=== PATIENT | female | born 1985 | race Caucasian/White ===

== ENCOUNTER 2017-09-03 22:03 | Emergency (ER) | payer SELFPAY ==
[~2017-09-03] VITALS: Ht 172.7 cm; Wt 139.3 kg
[~2017-09-03 22:03] MED LIST: BENZ100C15 PO; BUPR150T6 PO; INDO25CA PO; INDO25OR PO; LABE100T3 PO; MELO7.5T29 PO; OMEP20TA8 PO; ONDA4TAB10 PO; PARO20TA99 PO; QUET200T6 PO
[2017-09-03 22:34] LABS: BASO # 0.1 x10^3/uL (0.0-0.2); BASO % 1 % (0-3); EOS % 1 % (0-3); HEMATOCRIT 46.9 % (36.0-47.0); HEMOGLOBIN 15.8 g/dL (12.0-15.5); LYMPH # 1.9 x10^3/uL (1.0-4.8); LYMPH % 25 % (24-48); MEAN CORPUSCULAR HEMOGLOBIN 30 pg (25-35); MEAN CORPUSCULAR HGB CONC 34 g/dL (31-37); MEAN CORPUSCULAR VOLUME 89 fL (79-100); MONO % 8 % (0-9); NEUT % 66 % (31-73); PLATELET COUNT 240 x10^3/uL (140-400); RED BLOOD COUNT 5.25 x10^6/uL (3.50-5.40); WHITE BLOOD COUNT 7.7 x10^3/uL (4.0-11.0)
[2017-09-03 22:49] LABS: CALCIUM 9.4 mg/dL (8.5-10.1); CREATININE 0.7 mg/dL (0.6-1.0); GFR 97.6; POTASSIUM 3.7 mmol/L (3.5-5.1)
[2017-09-03 22:55] LABS: ALBUMIN 4.3 g/dL (3.4-5.0); DIRECT BILIRUBIN 0.1 mg/dL (0.0-0.2); TOTAL BILIRUBIN 0.4 mg/dL (0.2-1.0); TOTAL PROTEIN 7.7 g/dL (6.4-8.2)
[2017-09-03] MEDS ORDERED: ASPIRIN CHEWABLE 81 MG TABLET. PO ONE (23:30)
--- NOTE | 2017-09-03 23:35 | PHYS DOC ---
Past Medical History Past Medical History: Anxiety, Asthma, Diabetes-Type II, Fibromyalgia, Hypertension, Migraines, Seizure, Schizophrenia, Other Additional Past Medical Histor: ADD, BPD Past Surgical History: Other Additional Past Surgical Histo: wisdom teeth, cryo, heart cath- negative,exp lap, uterine lap Alcohol Use: None Drug Use: None Adult General Chief Complaint Chief Complaint: CHEST PAIN HPI HPI 32-year-old female presenting to the emergency department today with chest pain started around 1600. She describes the pain as a sharp shooting pain with nausea without vomiting. She denies diaphoresis. She denies unilateral leg swelling hemoptysis or personal history of blood clotting disorder. She has a history of high blood pressure and diabetes. Review of systems is negative for abdominal pain shortness of breath fevers chills. Positive for a cough over the past 2 weeks. All other review of systems is negative unless otherwise noted in history of present illness. ED course: 32-year-old female presenting with chest pain. Triage vital signs show the patient to be afebrile with a normal pulse. Saturating well on room air. Mild hypertension present. EKG obtained and reviewed by myself shows sinus rhythm with a regular rate. ST segments are congruent. Not suggestive of ACS. Chest x-ray obtained and reviewed by myself shows no obvious pneumothorax or infiltrate. No obvious acute pathology. Blood work obtained which showed a negative d-dimer. Wells 0. Negative troponin 2. Repeat EKG shows no acute changes. Patient subsequent discharged home. The patient was then discharged home in stable condition to follow up with their primary care physician over the next 2-3 days. They were to return if their symptoms worsened or if they were concerned for any reason. [id number] discharge instructions and return precautions were given. Patient's questions were answered to their satisfaction. Patient is comfortable plan. Review of Systems Review of Systems SEE ABOVE. Current Medications Current Medications Current Medications Medications (Trade) Dose Ordered Sig/Ric Start Time Stop Time Status Last Admin Dose Admin Aspirin (Children'S Aspirin) 324 mg 1X ONCE 09/03/17 23:30 09/03/17 23:31 DC 09/03/17 23:32 324 MG Allergies Allergies Allergies Coded Allergies Type Severity Reaction Last Updated Verified Hydroxychloroquine Allergy Severe "asthma" 02/24/14 Yes aripiprazole Allergy Severe "ATTEMPTS SUICIDE" 02/24/14 Yes coconut oil Allergy Severe swelling 02/24/14 Yes divalproex sodium Allergy Severe ATTEMPTS SUICIDE 02/24/14 Yes Penicillins Allergy Intermediate 04/21/14 Yes codeine Allergy Intermediate 04/21/14 Yes hydroxyzine Allergy Intermediate 04/21/14 Yes ibuprofen Allergy Intermediate 04/21/14 Yes red dye Allergy Intermediate 04/21/14 Yes tramadol Allergy Intermediate 04/21/14 Yes Prazosin Adverse Reaction Intermediate 02/24/14 Yes Physical Exam Physical Exam Constitutional: Well developed, well nourished, no acute distress, non-toxic appearance. HENT: Normocephalic, atraumatic, bilateral external ears normal, oropharynx moist, no oral exudates, nose normal. [] Eyes: PERRLA, EOMI, conjunctiva normal, no discharge. [] Neck: Normal range of motion, no tenderness, supple, no stridor. Cardiovascular:Heart rate regular rhythm, no murmur Lungs & Thorax: Bilateral breath sounds clear to auscultation [] Abdomen: Bowel sounds normal, soft, no tenderness, no masses, no pulsatile masses. [] Skin: Warm, dry, no erythema, no rash. Back: No tenderness, no CVA tenderness. [] Extremities: No tenderness, no cyanosis, no clubbing, ROM intact, no edema. Neurologic: Alert and oriented X 3, normal motor function, normal sensory function, no focal deficits noted. [] Psychologic: Affect normal, judgement normal, mood normal. [] Current Patient Data Vital Signs Vital Signs Date Time Temp Pulse Resp B/P (MAP) Pulse Ox O2 Delivery O2 Flow Rate FiO2 09/03/17 23:16 95 20 152/98 (116) 98 Room Air 09/03/17 22:16 98.1 98.1 Lab Values Laboratory Tests Test 09/03/17 22:25 09/04/17 01:11 White Blood Count 7.7 x10^3/uL (4.0-11.0) Red Blood Count 5.25 x10^6/uL (3.50-5.40) Hemoglobin 15.8 g/dL (12.0-15.5) H Hematocrit 46.9 % (36.0-47.0) Mean Corpuscular Volume 89 fL (79-100) Mean Corpuscular Hemoglobin 30 pg (25-35) Mean Corpuscular Hemoglobin Concent 34 g/dL (31-37) Red Cell Distribution Width 14.0 % (11.5-14.5) Platelet Count 240 x10^3/uL (140-400) Neutrophils (%) (Auto) 66 % (31-73) Lymphocytes (%) (Auto) 25 % (24-48) Monocytes (%) (Auto) 8 % (0-9) Eosinophils (%) (Auto) 1 % (0-3) Basophils (%) (Auto) 1 % (0-3) Neutrophils # (Auto) 5.1 x10^3uL (1.8-7.7) Lymphocytes # (Auto) 1.9 x10^3/uL (1.0-4.8) Monocytes # (Auto) 0.6 x10^3/uL (0.0-1.1) Eosinophils # (Auto) 0.0 x10^3/uL (0.0-0.7) Basophils # (Auto) 0.1 x10^3/uL (0.0-0.2) D-Dimer (Keli) 0.47 ug/mlFEU (0.00-0.50) Sodium Level 145 mmol/L (136-145) Potassium Level 3.7 mmol/L (3.5-5.1) Chloride Level 106 mmol/L (98-107) Carbon Dioxide Level 24 mmol/L (21-32) Anion Gap 15 (6-14) H Blood Urea Nitrogen 14 mg/dL (7-20) Creatinine 0.7 mg/dL (0.6-1.0) Estimated GFR (Cockcroft-Gault) 97.6 Glucose Level 93 mg/dL (70-99) Calcium Level 9.4 mg/dL (8.5-10.1) Total Bilirubin 0.4 mg/dL (0.2-1.0) Direct Bilirubin 0.1 mg/dL (0.0-0.2) Aspartate Amino Transferase (AST) 47 U/L (15-37) H Alanine Aminotransferase (ALT) 91 U/L (14-59) H Alkaline Phosphatase 106 U/L (46-116) Troponin I Quantitative 0.034 ng/mL (0.000-0.055) 0.029 ng/mL (0.000-0.055) Total Protein 7.7 g/dL (6.4-8.2) Albumin 4.3 g/dL (3.4-5.0) Lipase 102 U/L (73-393) Laboratory Tests 09/03/17 22:25 Laboratory Tests 09/03/17 22:25 EKG EKG [] Radiology/Procedures Radiology/Procedures [] Course & Med Decision Making Course & Med Decision Making Pertinent Labs and Imaging studies reviewed. (See chart for details) [] Dragon Disclaimer Dragon Disclaimer This electronic medical record was generated, in whole or in part, using a voice recognition dictation system. Departure Departure Impression: Primary Impression: Chest pain Disposition: HOME, SELF-CARE Condition: STABLE Referrals: SUMA BRADLEY MD (PCP) CHARLIE TERRAZAS MD for chest pain r/o evaluation Patient Instructions: Chest Pain (Nonspecific) Additional Instructions: Thank you for allowing us to participate in your care today. Followup with your primary care physician in 3 days if your symptoms do not improve. Call your Primary Doctor tomorrow and inform them of your visit today. If you do not have a primary care provider you can ask for a list of our primary care providers. Return to the emergency department you have any new or concerning findings. This should be evaluated by the primary care physician and any necessary consulting services for continued management within a few days after discharge. Return to emergency room if you have any new or concerning symptoms including but not limited to fever, chills, nausea, vomiting, intractable pain, any new rashes, chest pain, shortness of air, uncontrolled bleeding, difficulty breathing, and/or vision loss. Scripts Aspirin (ASPIR 81) 81 Mg Tablet.dr 1 TAB PO DAILY, #7 TAB 0 Refills Prov: MIKE RIVERA MD 09/04/17 MIKE RIVERA MD Sep 03, 2017 23:35
[2017-09-04] MEDS ORDERED: ASPI-482 PO (01:54)
[2017-09-04 02:23] VITALS: BP 140/93
--- NOTE | 2017-09-04 06:24 | EKG ---
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
--- NOTE | 2017-09-04 06:39 | EKG ---
[facility] [address] [place] [address] Test Date: 2017-09-04 Test Time: 01:01:28 Pat Name: SAUNDRA CAO Department: Room: Gender: F Derrick Hand: : 1985 Requested By: MIKE RIVERA Order Number: [id number] Reading MD: Marlin Ashraf Measurements Intervals [place] Rate: 72 P: 5 MO: 156 QRS: -18 QRSD: 108 T: 52 QT: 408 QTc: 448 Interpretive Statements SINUS RHYTHM NORMAL EKG Electronically Signed On 09-06-2017 18:59:36 CDT by Marlin Ashraf
--- NOTE | 2017-09-04 08:17 | RAD ---
Portable chest, 09/03/2017: History: Left-sided pain Comparison is made to a study from 04/21/2014. The heart size and pulmonary vascularity are normal. The lungs are clear. There is no evidence of pleural fluid. IMPRESSION: No acute cardiopulmonary abnormality is detected.
== END 2017-09-04 02:21 | disposition home or self-care (01) ==
LOC: ER 22:03
DX: R07.89 Other chest pain (principal); R11.0 Nausea; R05 Cough; F41.9 Anxiety disorder, unspecified; J45.909 Unspecified asthma, uncomplicated; E11.9 Type 2 diabetes mellitus without complications; M79.7 Fibromyalgia; I10 Essential (primary) hypertension; F20.9 Schizophrenia, unspecified; G43.909 Migraine, unspecified, not intractable, without status migrainosus; F98.8 Other specified behavioral and emotional disorders with onset usually occurring in childhood and adolescence; Z88.0 Allergy status to penicillin; Z88.5 Allergy status to narcotic agent; Z88.8 Allergy status to other drugs, medicaments and biological substances; Z91.041 Radiographic dye allergy status
CPT/HCPCS: 36415; 71010; 80048; 80076; 83690; 84484; 85025; 85379; 93005; 99285-25

== ENCOUNTER 2018-02-09 10:40 | Emergency (ER) | payer OTHER ==
[2018-02-09] MEDS: IV NORMAL SALINE 1000ML BAG 1,000 ML IV (11:21)
[2018-02-09] MEDS: diphenhydrAMINE 50 MG/ML VIAL IVP (11:21)
[2018-02-09] MEDS: ONDANSETRON PF 4 MG/2 ML VIAL. IV (11:21)
[2018-02-09] MEDS: KETOROLAC 30 MG/ML INJ. IV ×2 (13:45)
== END 2018-02-09 15:19 | disposition home or self-care (01) ==
LOC: ER 10:40
DX: R51 Headache (principal); R42 Dizziness and giddiness; G43.909 Migraine, unspecified, not intractable, without status migrainosus; J45.909 Unspecified asthma, uncomplicated; I10 Essential (primary) hypertension; F20.9 Schizophrenia, unspecified; E11.9 Type 2 diabetes mellitus without complications; F41.9 Anxiety disorder, unspecified; Z88.0 Allergy status to penicillin; Z88.5 Allergy status to narcotic agent; Z88.6 Allergy status to analgesic agent; Z91.041 Radiographic dye allergy status
CPT/HCPCS: 70450; 96361; 96374; 96375; 99285-25; J1200; J1885; J2405; J7030

== ENCOUNTER 2018-03-04 07:52 | Observation (INO) | payer OTHER ==
[~2018-03-04 07:52] MED LIST changes: -BENZ100C15 PO; -BUPR150T6 PO; +CLINDAMYCIN 900MG PREMIX 50 ML IV; -INDO25CA PO; -INDO25OR PO; -LABE100T3 PO; +LIDOCAINE 1% PF 2 ML VIAL. ID; -MELO7.5T29 PO; -OMEP20TA8 PO; -ONDA4TAB10 PO; -PARO20TA99 PO; -QUET200T6 PO; +fentaNYL PF VIAL 100 MCG/2 ML VIAL IV
[2018-03-04] MEDS: IV RINGERS,LACTATED 1000ML 1,000 ML IV (08:51)
[2018-03-04] MEDS ORDERED: METHYLENE BLUE 1% 10 ML VIAL. (09:32)
[2018-03-04] MEDS ORDERED: ESTROGENS, CONJ VAGINAL CREAM 30GM TUBE. (09:32)
[2018-03-04] MEDS ORDERED: SURGICEL HEMOSTAT 4X8 EACH. (09:32)
[2018-03-04 09:35] LABS: ADD MAN DIFF? NO
[2018-03-04 09:39] LABS: BASO % 1 % (0-3); EOS # 0.1 x10^3/uL (0.0-0.7); EOS % 2 % (0-3); HEMATOCRIT 38.8 % (36.0-47.0); HEMOGLOBIN 13.1 g/dL (12.0-15.5); LYMPH # 1.2 x10^3/uL (1.0-4.8); LYMPH % 18 % (24-48); MEAN CORPUSCULAR HEMOGLOBIN 30 pg (25-35); MEAN CORPUSCULAR HGB CONC 34 g/dL (31-37); MEAN CORPUSCULAR VOLUME 88 fL (79-100); MONO # 0.4 x10^3/uL (0.0-1.1); MONO % 7 % (0-9); NEUT # 4.7 x10^3uL (1.8-7.7); NEUT % 73 % (31-73); PLATELET COUNT 241 x10^3/uL (140-400); RED CELL DISTRIBUTION WIDTH 14.8 % (11.5-14.5); WHITE BLOOD COUNT 6.5 x10^3/uL (4.0-11.0)
[2018-03-04 09:41] LABS: NEG OBC UR NEG; POS OBC UR POS; U PREG PATIENT NEGATIVE (NEG)
[2018-03-04] MEDS ORDERED: MIDAZOLAM HCL/PF 2 MG/2 ML VIAL. (10:19)
[2018-03-04] MEDS ORDERED: DESFLURANE > 120 MINUTES IH (10:19)
[2018-03-04] MEDS ORDERED: fentaNYL PF VIAL 100 MCG/2 ML VIAL ×4 (10:19→13:06)
[2018-03-04] MEDS ORDERED: GLYCOPYRROLATE 1 MG/5 ML VIAL. (10:20)
[2018-03-04] MEDS ORDERED: ONDANSETRON PF 4 MG/2 ML VIAL. (10:20)
[2018-03-04] MEDS ORDERED: ROCURONIUM 50 MG/5 ML VIAL. ×2 (10:20→11:23)
[2018-03-04] MEDS ORDERED: NEOSTIGMINE METHYLSULFATE 5 MG/5 ML SYRINGE. (10:20)
[2018-03-04] MEDS ORDERED: PROPOFOL 20 ML IV (10:20)
[2018-03-04] MEDS ORDERED: DEXAMETHASONE SOD PHOS 20 MG/5 ML VIAL. (10:20)
[2018-03-04] MEDS ORDERED: KETOROLAC 30 MG/ML INJ FOR OR. INJ (10:20)
[2018-03-04] MEDS: BUPIVACAINE-EPI 0.25%-1:200000 50 ML VIAL. (11:20)
[2018-03-04] MEDS: LIDOCAINE 1%/EPI 1:100,000 20 ML VIAL. (11:20)
[2018-03-04] MEDS ORDERED: ONDANSETRON PF 4 MG/2 ML VIAL. IV (12:45)
[2018-03-04] MEDS ORDERED: PROCHLORPERAZINE 10 MG/2 ML VIAL. IV (12:45)
[2018-03-04] MEDS ORDERED: DEXTROSE 50% 25 GM / 50ML DISP.SYRIN. IV (12:45)
[2018-03-04] MEDS ORDERED: CALCIUM CARBONATE 500 MG TAB.CHEW PO (12:45)
[2018-03-04] MEDS ORDERED: SIMETHICONE 80 MG TAB.CHEW PO (12:45)
[2018-03-04] MEDS ORDERED: ZOLPIDEM 5 MG TABLET. PO (12:45)
[2018-03-04] MEDS: PROCHLORPERAZINE 10 MG/2 ML VIAL. IV (12:58)
[2018-03-04 12:59] LABS: POC GLUCOSE 101 mg/dL (70-99)
[2018-03-04] MEDS: fentaNYL PF VIAL 100 MCG/2 ML VIAL IV ×4 (12:59→13:26)
[2018-03-04] MEDS: KETOROLAC 30 MG/ML INJ. IV ×2 (14:25→20:28)
[2018-03-04] MEDS: GABAPENTIN 300 MG CAPSULE. PO ×2 (16:17→22:44)
[2018-03-05] MEDS: KETOROLAC 30 MG/ML INJ. IV ×2 (03:11→09:20)
[2018-03-05 05:18] LABS: ADD MAN DIFF? NO
[2018-03-05 05:38] LABS: BASO % 0 % (0-3); EOS # 0.1 x10^3/uL (0.0-0.7); EOS % 1 % (0-3); HEMATOCRIT 38.8 % (36.0-47.0); HEMOGLOBIN 13.2 g/dL (12.0-15.5); LYMPH # 1.5 x10^3/uL (1.0-4.8); LYMPH % 14 % (24-48); MEAN CORPUSCULAR HEMOGLOBIN 30 pg (25-35); MEAN CORPUSCULAR HGB CONC 34 g/dL (31-37); MEAN CORPUSCULAR VOLUME 87 fL (79-100); MONO # 0.7 x10^3/uL (0.0-1.1); MONO % 7 % (0-9); NEUT # 8.4 x10^3uL (1.8-7.7); NEUT % 78 % (31-73); PLATELET COUNT 255 x10^3/uL (140-400); RED BLOOD COUNT 4.47 x10^6/uL (3.50-5.40); RED CELL DISTRIBUTION WIDTH 14.9 % (11.5-14.5); WHITE BLOOD COUNT 10.8 x10^3/uL (4.0-11.0)
[2018-03-05] MEDS: GABAPENTIN 300 MG CAPSULE. PO (06:23)
[2018-03-05 08:04] LABS: POC GLUCOSE 82 mg/dL (70-99)
[2018-03-05] MEDS: 0.9 % SODIUM CHLORIDE 10 ML DISP.SYRIN. IV (09:20)
== END 2018-03-05 11:00 | disposition home or self-care (01) ==
LOC: SURG 07:52 → 3 NORTH 12:42
DX: N70.11 Chronic salpingitis (principal); N94.6 Dysmenorrhea, unspecified; N85.2 Hypertrophy of uterus; N73.6 Female pelvic peritoneal adhesions (postinfective); N94.89 Other specified conditions associated with female genital organs and menstrual cycle
CPT/HCPCS: 36415; 81025; 82962; 85025; 86850; 86900; 86901; 88307; 96374; 96376; G0378; G0379; J0780; J1100; J1885; J1956; J2250; J2405; J2704; J2710; J3010; J3490; J7120; Q9968

== ENCOUNTER 2018-03-31 14:36 | Emergency (ER) | payer OTHER ==
[2018-03-31] MEDS: IV NORMAL SALINE 1000ML BAG 1,000 ML IV (15:29)
[2018-03-31] MEDS: diphenhydrAMINE 50 MG/ML VIAL IVP (15:31)
[2018-03-31] MEDS: PROCHLORPERAZINE 10 MG/2 ML VIAL. IV (15:32)
[2018-03-31] MEDS: KETOROLAC 30 MG/ML INJ. IV (15:33)
== END 2018-03-31 16:27 | disposition home or self-care (01) ==
LOC: ER 16:27
DX: G43.009 Migraine without aura, not intractable, without status migrainosus (principal); E11.9 Type 2 diabetes mellitus without complications; F20.9 Schizophrenia, unspecified; I10 Essential (primary) hypertension; J45.909 Unspecified asthma, uncomplicated; M79.7 Fibromyalgia; Z88.2 Allergy status to sulfonamides; Z88.6 Allergy status to analgesic agent; Z88.1 Allergy status to other antibiotic agents; Z91.030 Bee allergy status; Z91.041 Radiographic dye allergy status; Z91.011 Allergy to milk products; Z88.5 Allergy status to narcotic agent; Z88.8 Allergy status to other drugs, medicaments and biological substances; Z91.018 Allergy to other foods
CPT/HCPCS: 96361; 96374; 96375; 99285-25; J0780; J1200; J1885; J7030

== ENCOUNTER 2018-04-10 16:18 | Emergency (ER) | payer OTHER ==
[2018-04-10 17:11] LABS: BILIRUBIN,URINE NEGATIVE (NEG); CLARITY,URINE CLEAR; COLOR,URINE YELLOW; GLUCOSE,URINE NEGATIVE (NEG); NITRITE,URINE NEGATIVE (NEG); PROTEIN,URINE NEGATIVE (NEG-TRACE); UROBILINOGEN,URINE 0.2 mg/dL (0.2 mg/dL)
[2018-04-10 17:17] LABS: BACTERIA,URINE FEW /HPF (0-FEW); RBC,URINE 0 /HPF (0-2); SQUAMOUS EPITHELIAL CELL,UR MOD /LPF
[2018-04-10 17:23] LABS: BARBITURATES NEG (NEG); BENZODIAZEPINES NEG (NEG); CANNABINOIDS NEG (NEG); COCAINE NEG (NEG); METHADONE NEG (NEG); OPIATES NEG (NEG); PHENCYCLIDINE NEG (NEG)
[2018-04-10 17:27] LABS: AMPHETAMINE/METHAMPHETAMINE NEG (NEG); ETHANOL, URINE NEG (NEG)
[2018-04-10] MEDS ORDERED: IOHEXOL 300 MG/ML 100ML VIAL. IV (17:30)
[2018-04-10] MEDS: ONDANSETRON PF 4 MG/2 ML VIAL. IV (18:11)
[2018-04-10] MEDS: fentaNYL PF VIAL 100 MCG/2 ML VIAL IV (18:15)
[2018-04-10] MEDS: PANTOPRAZOLE IV PUSH 40 MG VIAL. IVP (18:18)
[2018-04-10 18:45] LABS: ADD MAN DIFF? NO
[2018-04-10 18:49] LABS: BASO % 1 % (0-3); EOS # 0.2 x10^3/uL (0.0-0.7); EOS % 2 % (0-3); HEMATOCRIT 37.6 % (36.0-47.0); HEMOGLOBIN 12.9 g/dL (12.0-15.5); LYMPH # 1.6 x10^3/uL (1.0-4.8); LYMPH % 21 % (24-48); MEAN CORPUSCULAR HEMOGLOBIN 31 pg (25-35); MEAN CORPUSCULAR HGB CONC 34 g/dL (31-37); MEAN CORPUSCULAR VOLUME 89 fL (79-100); MONO # 0.6 x10^3/uL (0.0-1.1); MONO % 8 % (0-9); NEUT # 5.2 x10^3uL (1.8-7.7); NEUT % 68 % (31-73); PLATELET COUNT 281 x10^3/uL (140-400); RED BLOOD COUNT 4.25 x10^6/uL (3.50-5.40); RED CELL DISTRIBUTION WIDTH 15.6 % (11.5-14.5); WHITE BLOOD COUNT 7.6 x10^3/uL (4.0-11.0)
[2018-04-10 18:57] LABS: ANION GAP 11 (6-14); BLOOD UREA NITROGEN 17 mg/dL (7-20); BUN/CREATININE RATIO 21 (6-20); CALCIUM 8.3 mg/dL (8.5-10.1); CARBON DIOXIDE 25 mmol/L (21-32); CHLORIDE 106 mmol/L (98-107); CREATININE 0.8 mg/dL (0.6-1.0); GFR 83.7; GLUCOSE 94 mg/dL (70-99); POTASSIUM 3.8 mmol/L (3.5-5.1); SODIUM 142 mmol/L (136-145)
[2018-04-10 18:59] LABS: ETHANOL < 10 mg/dL (0-10)
[2018-04-10 19:03] LABS: ALBUMIN 3.7 g/dL (3.4-5.0); ALBUMIN/GLOBULIN RATIO 1.1 (1.0-1.7); ALK PHOS 98 U/L (46-116); ALT (SGPT) 32 U/L (14-59); AST (SGOT) 15 U/L (15-37); LIPASE 129 U/L (73-393); TOTAL BILIRUBIN 0.3 mg/dL (0.2-1.0); TOTAL PROTEIN 7.1 g/dL (6.4-8.2)
[2018-04-10] MEDS: KETOROLAC 30 MG/ML INJ. IV (19:31)
== END 2018-04-10 20:07 | disposition home or self-care (01) ==
LOC: ER 20:07
DX: R10.31 Right lower quadrant pain (principal); R10.11 Right upper quadrant pain; G89.29 Other chronic pain; K21.9 Gastro-esophageal reflux disease without esophagitis; J45.909 Unspecified asthma, uncomplicated; M79.7 Fibromyalgia; G43.909 Migraine, unspecified, not intractable, without status migrainosus; F20.9 Schizophrenia, unspecified; I10 Essential (primary) hypertension; E11.9 Type 2 diabetes mellitus without complications; Z90.710 Acquired absence of both cervix and uterus; Z90.49 Acquired absence of other specified parts of digestive tract; Z88.2 Allergy status to sulfonamides; Z88.1 Allergy status to other antibiotic agents; Z88.5 Allergy status to narcotic agent; Z88.8 Allergy status to other drugs, medicaments and biological substances; Z91.030 Bee allergy status; Z91.041 Radiographic dye allergy status; Z91.011 Allergy to milk products
CPT/HCPCS: 36415; 74176; 80053; 80307; 81001; 83690; 85025; 87086; 96374; 96375; 99285-25; C9113; G0480; J1885; J2405; J3010

== ENCOUNTER 2018-04-29 14:03 | Emergency (ER) | payer OTHER ==
[2018-04-29 14:33] LABS: BILIRUBIN,URINE NEGATIVE (NEG); CLARITY,URINE CLEAR; COLOR,URINE YELLOW; GLUCOSE,URINE NEGATIVE (NEG); NITRITE,URINE NEGATIVE (NEG); PROTEIN,URINE NEGATIVE (NEG-TRACE)
[2018-04-29 14:38] LABS: ADD MAN DIFF? NO
[2018-04-29 14:39] LABS: BACTERIA,URINE MOD /HPF (0-FEW); BASO # 0.1 x10^3/uL (0.0-0.2); BASO % 1 % (0-3); EOS # 0.1 x10^3/uL (0.0-0.7); EOS % 2 % (0-3); HEMATOCRIT 39.6 % (36.0-47.0); HEMOGLOBIN 13.6 g/dL (12.0-15.5); LYMPH # 1.8 x10^3/uL (1.0-4.8); LYMPH % 27 % (24-48); MEAN CORPUSCULAR HEMOGLOBIN 30 pg (25-35); MEAN CORPUSCULAR HGB CONC 34 g/dL (31-37); MEAN CORPUSCULAR VOLUME 88 fL (79-100); MONO # 0.5 x10^3/uL (0.0-1.1); MONO % 8 % (0-9); NEUT # 4.2 x10^3uL (1.8-7.7); NEUT % 63 % (31-73); PLATELET COUNT 224 x10^3/uL (140-400); RBC,URINE 0 /HPF (0-2); RED BLOOD COUNT 4.48 x10^6/uL (3.50-5.40); RED CELL DISTRIBUTION WIDTH 15.1 % (11.5-14.5); SQUAMOUS EPITHELIAL CELL,UR MOD /LPF; WHITE BLOOD COUNT 6.7 x10^3/uL (4.0-11.0)
[2018-04-29 14:54] LABS: ANION GAP 12 (6-14); BLOOD UREA NITROGEN 22 mg/dL (7-20); CALCIUM 8.4 mg/dL (8.5-10.1); CARBON DIOXIDE 24 mmol/L (21-32); CHLORIDE 107 mmol/L (98-107); GFR 64.7; GLUCOSE 91 mg/dL (70-99); POTASSIUM 3.5 mmol/L (3.5-5.1); SODIUM 143 mmol/L (136-145)
[2018-04-29 15:06] LABS: TROPONINI < 0.017 ng/mL (0.000-0.055)
[2018-04-29] MEDS: IV NORMAL SALINE 1000ML BAG 1,000 ML IV (15:09)
[2018-04-29] MEDS: HYDROcodone/APAP 5/325MG 1 TAB TABLET PO (15:58)
== END 2018-04-29 15:55 | disposition home or self-care (01) ==
LOC: ER 14:03
DX: R56.9 Unspecified convulsions (principal); R53.1 Weakness; M79.604 Pain in right leg; M79.605 Pain in left leg; I10 Essential (primary) hypertension; E11.9 Type 2 diabetes mellitus without complications; F20.9 Schizophrenia, unspecified; J45.909 Unspecified asthma, uncomplicated; G43.909 Migraine, unspecified, not intractable, without status migrainosus; M79.7 Fibromyalgia; G47.33 Obstructive sleep apnea (adult) (pediatric); Z90.710 Acquired absence of both cervix and uterus; Z88.2 Allergy status to sulfonamides; Z88.1 Allergy status to other antibiotic agents; Z91.030 Bee allergy status; Z91.041 Radiographic dye allergy status; Z91.038 Other insect allergy status; Z91.011 Allergy to milk products; Z88.5 Allergy status to narcotic agent; Z88.8 Allergy status to other drugs, medicaments and biological substances; Z91.018 Allergy to other foods; [UNRECOGNIZED DIAGNOSIS CODE]
CPT/HCPCS: 36415; 80048; 81001; 84484; 85025; 93005; 96360; 99285-25; J7030

== ENCOUNTER → 2018-05-19 | Outpatient (CLI) | payer MEDICARE ==
[2018-05-19] MEDS: GADOBUTROL 7.5 MMOL/7.5 ML VIAL IV (14:45)
== END | disposition home or self-care (01) ==
LOC: KCIC MRI 13:57
DX: G43.909 Migraine, unspecified, not intractable, without status migrainosus (principal); I10 Essential (primary) hypertension; E11.9 Type 2 diabetes mellitus without complications
CPT/HCPCS: 70553; A9585

== ENCOUNTER 2018-05-29 12:42 | Emergency (ER) | payer MEDICARE ==
[2018-05-29] MEDS: HYDROcodone/APAP 10/325 1 TAB TABLET PO (13:10)
== END 2018-05-29 14:00 | disposition home or self-care (01) ==
LOC: ER 14:00
DX: M25.561 Pain in right knee (principal); F41.9 Anxiety disorder, unspecified; J45.909 Unspecified asthma, uncomplicated; E11.9 Type 2 diabetes mellitus without complications; I10 Essential (primary) hypertension; G43.909 Migraine, unspecified, not intractable, without status migrainosus; Z90.710 Acquired absence of both cervix and uterus; Z88.1 Allergy status to other antibiotic agents; Z91.030 Bee allergy status; Z91.041 Radiographic dye allergy status; Z91.011 Allergy to milk products; Z88.2 Allergy status to sulfonamides; Z88.8 Allergy status to other drugs, medicaments and biological substances
CPT/HCPCS: 73562; 99284

== ENCOUNTER 2018-08-22 15:09 | Emergency (ER) | payer MEDICARE ==
[~2018-08-22] VITALS: Ht 165.1 cm; Wt 129.7 kg
[~2018-08-22 15:09] MED LIST changes: +ALBU2.5V14 NEB; +ALBU8.5H8 IH; +AMLO10TA6 PO; +ASPI-482 PO; +BENZ-8 PO; +BUPR150T6 PO; +BUSP5TAB PO; +CETI10TA16 PO; -CLINDAMYCIN 900MG PREMIX 50 ML IV; +CYCL5TAB PO; +DICL100G18 TP; +DOCU-109 PO; +EPIPEN 2-P0.3 MG/0.3 IJ; +ESCITALOPRAM OX20 MG PO; +FLUT16SP NS; +FLUT1DIS3 IH; +GABA600T2 PO; +GUAI600T47 PO; +HYDR-971 PO; +IBUP200T77 PO; +INDO25CA5 PO; +INDO25OR PO; +LABE100T5 PO; +LAMO200T3 PO; -LIDOCAINE 1% PF 2 ML VIAL. ID; +LURA80TA PO; +MECL25TA3 PO; +MELO7.5T29 PO; +METO25TA4 PO; +OMEP20TA8 PO; +ONDA4TAB10 PO; +ONDA4TAB10 SL; +OXYB5TAB7 PO; +OXYC-323 PO; +PARO20TA99 PO; +PROM25TA10 PO; +QUET200T4 PO; +QUET200T6 PO; +SUMA100T4 PO; +TRAZ150T49 PO; -fentaNYL PF VIAL 100 MCG/2 ML VIAL IV
--- NOTE | 2018-08-22 16:21 | PHYS DOC ---
Past Medical History Past Medical History: Anxiety, Asthma, Diabetes-Type II, Fibromyalgia, Hypertension, Migraines, Seizure, Schizophrenia, Other Additional Past Medical Histor: ADD, BPD, INTERSTITIAL CYSTITIS Past Surgical History: Hysterectomy, Other Additional Past Surgical Histo: wisdom teeth, cryo, heart cath- negative,exp lap, uterine lap Alcohol Use: Rarely Drug Use: None Adult General Chief Complaint Chief Complaint: FACE PROBLEM HPI HPI Patient is a 33 year old female who presents to the ER with complaints of left sided facial numbness from the level of her ear down to her shoulder since awakening this morning. She states that she also has pain in the left side of her neck with movement to the right . She denies any fever, facial drooping, weakness, injury, difficulty speaking, incoordination, or vision changes. 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 She denies any nausea, vomiting, or photosensitivity. She states that she has had torticollis before and that the pain is similar to those symptoms, however, she has never had tingling with her torticollis. Currently patient rates her discomfort as a 8-9 out of 10 on the pain scale. She reports taking a oxycodone 5/325 mg tablet at home with no relief of her symptoms. Review of Systems Review of Systems Constitutional: Denies fever or chills [] Eyes: Denies change in visual acuity, redness, or eye pain [] Respiratory: Denies cough or shortness of breath [] Cardiovascular: No additional information not addressed in HPI [] GI: Denies nausea, vomiting Integument: Denies rash or skin lesions [] Neurologic: Denies headache or focal weakness, reports numbness and pain in left side of face from the level of her ear down her neck to her shoulder. All other systems were reviewed and found to be within normal limits, except as documented in this note. Current Medications Current Medications Current Medications Medications (Trade) Dose Ordered Sig/Ric Start Time Stop Time Status Last Admin Dose Admin Iohexol (Omnipaque 300 Mg/ml) 70 ml 1X ONCE 08/22/18 17:30 08/22/18 17:41 DC 08/22/18 17:41 70 ML Ketorolac Tromethamine (Toradol 15mg Vial) 15 mg 1X ONCE 08/22/18 17:30 08/22/18 17:41 DC 08/22/18 18:02 15 MG Orphenadrine Citrate (Norflex) 60 mg 1X ONCE 08/22/18 17:30 08/22/18 17:41 DC 08/22/18 18:02 60 MG Sodium Chloride 1,000 ml @ 1,000 mls/hr 1X ONCE 08/22/18 17:15 08/22/18 18:14 DC 08/22/18 17:23 1,000 MLS/HR Allergies Allergies Allergies Coded Allergies Type Severity Reaction Last Updated Verified aripiprazole Allergy Severe "ATTEMPTS SUICIDE" 02/24/14 Yes bee venom protein (honey bee) Allergy Severe Anaphylaxis 02/26/18 Yes cephalexin Allergy Severe Anaphylaxis 02/26/18 Yes coconut oil Allergy Severe swelling 02/24/14 Yes divalproex sodium Allergy Severe ATTEMPTS SUICIDE 02/24/14 Yes hydroxychloroquine Allergy Severe "asthma" 02/24/14 Yes venlafaxine Allergy Severe 02/26/18 Yes venom-wasp Allergy Severe Anaphylaxis 02/26/18 Yes Sulfa (Sulfonamide Antibiotics) Allergy Intermediate 03/05/18 Yes codeine Allergy Intermediate 02/04/18 Yes hydroxyzine Allergy Intermediate 04/21/14 Yes red dye Allergy Intermediate 04/21/14 Yes lactose Adverse Reaction Intermediate 03/05/18 Yes prazosin Adverse Reaction Intermediate 02/24/14 Yes Physical Exam Physical Exam Constitutional: Well developed, well nourished, no acute distress, non-toxic appearance, obese. [] HENT: Normocephalic, atraumatic, bilateral external ears normal, oropharynx moist, no oral exudates, nose normal. [] Eyes: PERRLA, EOMI, conjunctiva normal, no discharge. [] Neck: supple, no stridor.; left sternocleidomastoid tenderness to palpation, limited ROM to the R due to increased pain [] Cardiovascular:Heart rate regular rhythm, no murmur [] Lungs & Thorax: Bilateral breath sounds clear to auscultation [] Skin: Warm, dry, no erythema, no rash. 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 [] Current Patient Data Vital Signs Vital Signs Date Time Temp Pulse Resp B/P (MAP) Pulse Ox O2 Delivery O2 Flow Rate FiO2 08/22/18 15:30 98.6 73 16 146/84 (104) 98 Room Air 98.6 Lab Values Laboratory Tests Test 08/22/18 16:39 POC Hemoglobin 13.9 g/dL (12-15) POC Hematocrit 41 % (36-40) H POC Sodium 139 mmol/L (135-145) POC Potassium 5.5 mmol/L (3.5-5.0) H POC Chloride 103 mmol/L (98-110) POC Total CO2 27 mmol/L (23-32) Anion Gap 15 mmol/L (6-14) H POC Blood Urea Nitrogen 24 mg/dL (8-26) POC Creatinine 0.8 mg/dL (0.5-1.4) Glucose Level 107 mg/dL (70-99) H POC Ionized Calcium (Vikki) 1.10 mmol/L (1.13-1.32) L Laboratory Tests 08/22/18 16:39 EKG EKG [] Radiology/Procedures Radiology/Procedures []PROCEDURE: CT HEAD WO/W CONTRAST CT scan of the head without and with contrast 08/22/2018 CLINICAL HISTORY: Chronic migraines. History of seizures. TECHNIQUE: Study was, 5 mm axial sections were obtained through the head without and with use of intravenous contrast. 70 cc of Omnipaque 300 were administered intravenously during this examination. One or more of the following individualized dose reduction techniques were utilized for this study: 1. Automated exposure control. 2. Adjustment of the mA and/or kV according to patient size. 3. Use of iterative reconstruction technique. FINDINGS: Comparison is made to the patient's MRI of the brain dated 05/19/2018. The ventricles are within normal limits in size and configuration. Small cysts are seen within the superior left frontal lobe, unchanged. No acute parenchymal abnormality is seen. No extra-axial fluid collection is noted. No area of abnormal contrast enhancement is seen. No skull fracture is noted. IMPRESSION: No acute intracranial abnormality is seen. Course & Med Decision Making Course & Med Decision Making Pertinent Labs and Imaging studies reviewed. (See chart for details) Dx: Xt head was negative for any acute findings. Pt was given 15 mg of toradol, 60 mg of norflex IV, and 1L of NS via IV. She reports relief of pain after medications, continues to report left sided paresthesias. [] Dragon Disclaimer Dragon Disclaimer This electronic medical record was generated, in whole or in part, using a voice recognition dictation system. Departure Departure Impression: Primary Impression: Torticollis, acute Disposition: HOME, SELF-CARE Condition: STABLE Referrals: FLOR WHITLCOK MD (PCP) Patient Instructions: Torticollis, Acute Additional Instructions: Fill prescriptions and take as directed. Activity as tolerated. Follow up with your PCP in 1-2 days. Return to the ER if symptoms worsen. Scripts Naproxen (NAPROXEN) 500 Mg Tablet 500 MG PO BID for 10 Days, #20 TAB 0 Refills Prov: NOLBERTO MIJARES FOCUSED FACTORY MANAGER 08/22/18 Orphenadrine Citrate (ORPHENADRINE CITRATE) 100 Mg Tablet.er 100 MG PO BID PRN for PAIN, #20 TAB.SR 0 Refills Prov: NOLBERTO MIJARES FOCUSED FACTORY MANAGER 08/22/18 NOLBERTO MIJARES FOCUSED FACTORY MANAGER Aug 22, 2018 16:21
[2018-08-22 16:45] LABS: CREATININE ISTAT 0.8 mg/dL (0.5-1.4); HEMOGLOBIN ISTAT 13.9 g/dL (12-15); ION CA ISTAT 1.1 mmol/L (1.13-1.32); POTASSIUM ISTAT 5.5 mmol/L (3.5-5.0)
[2018-08-22] MEDS: IV NORMAL SALINE 1000ML BAG 1,000 ML IV ONE (17:23)
[2018-08-22] MEDS: IOHEXOL 300 MG/ML 100ML VIAL. IV ONE (17:41)
[2018-08-22] MEDS: KETOROLAC 15 MG/ML VIAL. IV ONE (18:02)
[2018-08-22] MEDS: ORPHENADRINE CITRATE 60 MG/2 ML VIAL. IV ONE (18:02)
--- NOTE | 2018-08-22 18:27 | RAD ---
CT scan of the head without and with contrast 08/22/2018 CLINICAL HISTORY: Chronic migraines. History of seizures. TECHNIQUE: Study was, 5 mm axial sections were obtained through the head without and with use of intravenous contrast. 70 cc of Omnipaque 300 were administered intravenously during this examination. One or more of the following individualized dose reduction techniques were utilized for this study: 1. Automated exposure control. 2. Adjustment of the mA and/or kV according to patient size. 3. Use of iterative reconstruction technique. FINDINGS: Comparison is made to the patient's MRI of the brain dated 05/19/2018. The ventricles are within normal limits in size and configuration. Small cysts are seen within the superior left frontal lobe, unchanged. No acute parenchymal abnormality is seen. No extra-axial fluid collection is noted. No area of abnormal contrast enhancement is seen. No skull fracture is noted. IMPRESSION: No acute intracranial abnormality is seen. Electronically signed by: Scooter Roblero MD (08/22/2018 6:23 PM) [facility]
[2018-08-22] MEDS ORDERED: NAPR-514 PO (18:58)
[2018-08-22] MEDS ORDERED: ORPH100T PO (18:58)
[2018-08-22 19:09] VITALS: BP 125/87
== END 2018-08-22 19:11 | disposition home or self-care (01) ==
LOC: ER 15:09
DX: M43.6 Torticollis (principal); J45.909 Unspecified asthma, uncomplicated; G43.909 Migraine, unspecified, not intractable, without status migrainosus; E11.9 Type 2 diabetes mellitus without complications; F20.9 Schizophrenia, unspecified; F98.8 Other specified behavioral and emotional disorders with onset usually occurring in childhood and adolescence; Z88.1 Allergy status to other antibiotic agents; Z91.030 Bee allergy status; Z91.041 Radiographic dye allergy status; Z91.011 Allergy to milk products; Z88.5 Allergy status to narcotic agent; Z88.2 Allergy status to sulfonamides; Z91.018 Allergy to other foods; Z91.048 Other nonmedicinal substance allergy status
CPT/HCPCS: 70470; 80047; 85014; 85018; 96374; 96375; 99284; J1885; J2360; J7030; Q9967

== ENCOUNTER 2018-09-13 17:18 | Emergency (ER) | payer MEDICARE ==
[~2018-09-13] VITALS: Ht 165.1 cm; Wt 133.4 kg
[~2018-09-13 17:18] MED LIST changes: +NAPR-514 PO; +ORPH100T PO
[2018-09-13] MEDS ORDERED: METOCLOPRAMIDE HCL 10 MG/2 ML VIAL. IV ONE (18:45)
[2018-09-13] MEDS ORDERED: KETOROLAC 30 MG/ML VIAL. IV ONE (18:45)
[2018-09-13] MEDS ORDERED: IV NORMAL SALINE 1000ML BAG 1,000 ML IV ONE (18:45)
--- NOTE | 2018-09-13 19:33 | PHYS DOC ---
Past Medical History Past Medical History: Anxiety, Asthma, Diabetes-Type II, Fibromyalgia, Hypertension, Migraines, Seizure, Schizophrenia, Other Additional Past Medical Histor: ADD, BPD, INTERSTITIAL CYSTITIS Past Surgical History: Hysterectomy, Other Additional Past Surgical Histo: wisdom teeth, cryo, heart cath- negative,exp lap, uterine lap Additional Information: "1/2 PACK DAILY'' Alcohol Use: Occasionally Drug Use: None Adult General Chief Complaint Chief Complaint: HEADACHE HPI HPI Patient is a 33 year old female who presents with migraine headache. Patient has been having a headache over the last 2-3 days. She does have a known prior history of migraine headaches. She was evaluated at [facility] yesterday for the same complaint. The patient states normally she receives a cocktail that includes Benadryl but she was not given any yesterday saw her headache persisted. Today, she complains of a typical headache. It was not thunderclap in nature. It is generalized over the bitemporal and top of her head. She has no fever, chills, rash. No neck stiffness. She is photophobic and does have some nausea associated with her symptoms. Review of Systems Review of Systems Constitutional: Denies fever or chills Eyes: Denies change in visual acuity HENT: Denies nasal congestion or sore throat Respiratory: Denies Cardiovascular: No additional information GI: Denies abdominal pain Musculoskeletal: Denies Integument: Denies rash Neurologic: Denies focal neuro complaints All other systems were reviewed and found to be within normal limits, except as documented in this note. Current Medications Current Medications Current Medications Medications (Trade) Dose Ordered Sig/Ric Start Time Stop Time Status Last Admin Dose Admin Ketorolac Tromethamine (Toradol 30mg Vial) 30 mg 1X ONCE 09/13/18 18:45 09/13/18 18:46 DC 09/13/18 18:45 30 MG Lorazepam (Ativan) 0.5 mg 1X ONCE 09/13/18 18:45 09/13/18 18:46 DC 09/13/18 18:47 0.5 MG Methylprednisolone Sodium Succinate (SOLU-Medrol 125MG VIAL) 125 mg 1X ONCE 09/13/18 20:00 09/13/18 20:01 DC 09/13/18 19:37 125 MG Metoclopramide HCl (Reglan Vial) 10 mg 1X ONCE 09/13/18 18:45 09/13/18 18:46 DC 09/13/18 18:43 10 MG Morphine Sulfate (Morphine Sulfate) 6 mg 1X ONCE 09/13/18 20:00 09/13/18 20:01 DC 09/13/18 19:39 6 MG Sodium Chloride 1,000 ml @ 1,000 mls/hr 1X ONCE 09/13/18 18:45 09/13/18 19:44 DC 09/13/18 18:45 1,000 MLS/HR Allergies Allergies Allergies Coded Allergies Type Severity Reaction Last Updated Verified aripiprazole Allergy Severe "ATTEMPTS SUICIDE" 02/24/14 Yes bee venom protein (honey bee) Allergy Severe Anaphylaxis 02/26/18 Yes cephalexin Allergy Severe Anaphylaxis 02/26/18 Yes coconut oil Allergy Severe swelling 02/24/14 Yes divalproex sodium Allergy Severe ATTEMPTS SUICIDE 02/24/14 Yes hydroxychloroquine Allergy Severe "asthma" 02/24/14 Yes venlafaxine Allergy Severe 02/26/18 Yes venom-wasp Allergy Severe Anaphylaxis 02/26/18 Yes Sulfa (Sulfonamide Antibiotics) Allergy Intermediate 03/05/18 Yes codeine Allergy Intermediate 02/04/18 Yes hydroxyzine Allergy Intermediate 04/21/14 Yes red dye Allergy Intermediate 04/21/14 Yes lactose Adverse Reaction Intermediate 03/05/18 Yes prazosin Adverse Reaction Intermediate 02/24/14 Yes Physical Exam Physical Exam Constitutional: Well developed, well nourished, no acute distress, non-toxic appearance HENT: Normocephalic, atraumatic, bilateral external ears normal, oropharynx moist Eyes: PERRLA, EOMI, conjunctiva normal Neck: Normal range of motion, no tenderness Cardiovascular:Heart rate regular rhythm, no murmur Lungs & Thorax: Bilateral breath sounds clear to auscultation Skin: Warm, no rashes Extremities: No tenderness, no edema Neurologic: Alert and oriented X 3 Psychologic: Affect normal Current Patient Data Vital Signs Vital Signs Date Time Temp Pulse Resp B/P (MAP) Pulse Ox O2 Delivery O2 Flow Rate FiO2 09/13/18 20:32 65 14 97 09/13/18 19:39 Room Air 09/13/18 17:31 98.4 123/64 (83) 98.4 EKG EKG [] Radiology/Procedures Radiology/Procedures [] Course & Med Decision Making Course & Med Decision Making Pertinent Labs and Imaging studies reviewed. (See chart for details) 19:34: Patient was evaluated in the emergency department for headache which she describes to be typical for her migraine syndrome. She requested Ativan and some antiemetic medication and Toradol. These were given initially but the patient continues to complain of headache with no improvement in symptoms. Currently, a dose of Solu-Medrol is ordered along with a dose of morphine.. 20:20: Currently feeling improved. Patient is requesting discharge home. She is also requesting a refill of her Norflex medication that she normally takes at home for muscle spasms. She is provided this prescription. She is advised to contact her primary care doctor to make a follow-up appointment as soon as possible or return to the ER for any new or worsening symptoms. Dragon Disclaimer Dragon Disclaimer This electronic medical record was generated, in whole or in part, using a voice recognition dictation system. Departure Departure Referrals: FLOR WHITLOCK MD (PCP) Scripts Orphenadrine Citrate (ORPHENADRINE CITRATE) 100 Mg Tablet.er 1 TAB PO BID PRN for MUSCLE SPASMS, #60 TAB 0 Refills Prov: MAMTA LONGO DO 09/13/18 MAMTA LONGO DO Sep 13, 2018 19:33
[2018-09-13] MEDS ORDERED: methylPREDNISolone SOD SUCC PF 125 MG/2 ML VIAL. IV ONE (20:00)
[2018-09-13] MEDS ORDERED: MORPHINE SULFATE 4 MG/ML VIAL. IV ONE (20:00)
[2018-09-13] MEDS ORDERED: ORPH100T PO (20:17)
[2018-09-13 20:32] VITALS: BP 119/67
== END 2018-09-13 20:38 | disposition home or self-care (01) ==
LOC: ER 17:18
DX: G43.909 Migraine, unspecified, not intractable, without status migrainosus (principal); J45.909 Unspecified asthma, uncomplicated; E11.9 Type 2 diabetes mellitus without complications; I10 Essential (primary) hypertension; Z90.710 Acquired absence of both cervix and uterus; Z88.5 Allergy status to narcotic agent; Z88.8 Allergy status to other drugs, medicaments and biological substances; Z91.030 Bee allergy status; Z88.2 Allergy status to sulfonamides
CPT/HCPCS: 96374; 96375; 99284; J1885; J2060; J2270; J2765; J2930; J7030

== ENCOUNTER 2018-09-18 19:31 | Emergency (ER) | payer MEDICARE ==
[~2018-09-18] VITALS: Ht 165.1 cm; Wt 133.8 kg
[2018-09-18 19:45] VITALS: BP 146/89
[2018-09-18] MEDS ORDERED: AZIT250T6 PO (20:15)
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
== END 2018-09-18 20:21 | disposition home or self-care (01) ==
LOC: ER 19:31
DX: J35.01 Chronic tonsillitis (principal); J45.909 Unspecified asthma, uncomplicated; I10 Essential (primary) hypertension; E11.9 Type 2 diabetes mellitus without complications; G43.909 Migraine, unspecified, not intractable, without status migrainosus; F20.9 Schizophrenia, unspecified; Z88.5 Allergy status to narcotic agent; Z88.2 Allergy status to sulfonamides; Z88.8 Allergy status to other drugs, medicaments and biological substances; Z88.1 Allergy status to other antibiotic agents; Z91.030 Bee allergy status; Z91.041 Radiographic dye allergy status; Z91.011 Allergy to milk products
CPT/HCPCS: 99283

== ENCOUNTER 2018-09-23 17:14 | Emergency (ER) | payer MEDICARE, OTHER ==
[~2018-09-23] VITALS: Ht 165.1 cm; Wt 133.8 kg
[~2018-09-23 17:14] MED LIST changes: +AZIT250T6 PO
[2018-09-23] MEDS ORDERED: ONDANSETRON PF 4 MG/2 ML VIAL. IV ONE (19:15)
[2018-09-23] MEDS ORDERED: ONDANSETRON ODT 4 MG TAB.RAPDIS. PO ONE (19:15)
--- NOTE | 2018-09-23 19:35 | RAD ---
Examination: CT HEAD WO CONTRAST History: seizure Comparison/Correlation: 08/22/2018 CT head without contrast Findings: Axial images of the head were obtained without contrast. Ventricles are normal size. No intracranial hemorrhage, midline shift, or mass effect. Globes and optic nerves are unremarkable. No depressed fracture. Impression: No intracranial hemorrhage. Electronically signed by: El Ayala MD (09/23/2018 7:31 PM) [facility]
[2018-09-23 19:48] LABS: CALCIUM 8.9 mg/dL (8.5-10.1); CREATININE 0.9 mg/dL (0.6-1.0); GFR 72.6; POTASSIUM 3.1 mmol/L (3.5-5.1)
[2018-09-23 19:49] LABS: BASO # 0.1 x10^3/uL (0.0-0.2); BASO % 1 % (0-3); EOS # 0.1 x10^3/uL (0.0-0.7); EOS % 1 % (0-3); HEMATOCRIT 40.5 % (36.0-47.0); HEMOGLOBIN 13.7 g/dL (12.0-15.5); LYMPH # 2.8 x10^3/uL (1.0-4.8); LYMPH % 26 % (24-48); MEAN CORPUSCULAR HEMOGLOBIN 31 pg (25-35); MEAN CORPUSCULAR HGB CONC 34 g/dL (31-37); MEAN CORPUSCULAR VOLUME 90 fL (79-100); MONO # 0.7 x10^3/uL (0.0-1.1); MONO % 7 % (0-9); NEUT % 65 % (31-73); PLATELET COUNT 252 x10^3/uL (140-400); RED BLOOD COUNT 4.48 x10^6/uL (3.50-5.40); RED CELL DISTRIBUTION WIDTH 14.5 % (11.5-14.5); WHITE BLOOD COUNT 10.7 x10^3/uL (4.0-11.0)
--- NOTE | 2018-09-23 20:32 | PHYS DOC ---
Past Medical History Past Medical History: Anxiety, Asthma, Diabetes-Type II, Fibromyalgia, Hypertension, Migraines, Seizure, Schizophrenia, Other Additional Past Medical Histor: ADD, BPD, INTERSTITIAL CYSTITIS Past Surgical History: Hysterectomy, Other Additional Past Surgical Histo: wisdom teeth, cryo, heart cath- negative,exp lap, uterine lap Alcohol Use: Occasionally Drug Use: None Adult General Chief Complaint Chief Complaint: SEIZURE HPI HPI Patient is a 33 year old f who presents to the ED for evaluation s/p seizure. pt states that she had a seizure approx 2 hrs ago. States that she has "absence seizures" states that she feels her body "tense and relax" but has no tonic clonic activity and no LOC. 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 On seizure medication. has been compliant with seizure medication. No changes. last breakthrough seizure was 11/2017. No GI illness. Follows with Dr. Cruz. Has ? tumor on recent MRI for which she is following with NSG. No headache. +nausea, no vomiting, no vision changes. Requesting a medication for nausea. Review of Systems Review of Systems Constitutional: Denies fever or chills [] Eyes: Denies change in visual acuity, redness, or eye pain [] HENT: Denies nasal congestion or sore throat [] Respiratory: Denies cough or shortness of breath [] Cardiovascular: No additional information not addressed in HPI [] GI: Denies abdominal pain, nausea, vomiting, bloody stools or diarrhea [] : Denies dysuria or hematuria [] Musculoskeletal: Denies back pain or joint pain [] Integument: Denies rash or skin lesions [] Neurologic: Denies headache, focal weakness or sensory changes [] Endocrine: Denies polyuria or polydipsia [] All other systems were reviewed and found to be within normal limits, except as documented in this note. Current Medications Current Medications Current Medications Medications (Trade) Dose Ordered Sig/Ric Start Time Stop Time Status Last Admin Dose Admin Ondansetron HCl (Zofran Odt) 8 mg 1X ONCE 09/23/18 19:15 09/23/18 19:16 DC 09/23/18 19:15 8 MG Ondansetron HCl (Zofran) 8 mg 1X ONCE 09/23/18 19:15 09/23/18 19:15 DC Allergies Allergies Allergies Coded Allergies Type Severity Reaction Last Updated Verified aripiprazole Allergy Severe "ATTEMPTS SUICIDE" 02/24/14 Yes bee venom protein (honey bee) Allergy Severe Anaphylaxis 02/26/18 Yes cephalexin Allergy Severe Anaphylaxis 02/26/18 Yes coconut oil Allergy Severe swelling 02/24/14 Yes divalproex sodium Allergy Severe ATTEMPTS SUICIDE 02/24/14 Yes hydroxychloroquine Allergy Severe "asthma" 02/24/14 Yes venlafaxine Allergy Severe 02/26/18 Yes venom-wasp Allergy Severe Anaphylaxis 02/26/18 Yes Sulfa (Sulfonamide Antibiotics) Allergy Intermediate 03/05/18 Yes codeine Allergy Intermediate 02/04/18 Yes hydroxyzine Allergy Intermediate 04/21/14 Yes red dye Allergy Intermediate 04/21/14 Yes lactose Adverse Reaction Intermediate 03/05/18 Yes prazosin Adverse Reaction Intermediate 02/24/14 Yes Physical Exam Physical Exam Constitutional: Morbidly obese, no acute distress, nontoxic appearing HENT: Normocephalic, atraumatic, Eyes: PERRLA, EOMI, Neck: Normal range of motion, no stridor. [] Cardiovascular:Heart rate regular rhythm, no murmur [] Lungs & Thorax: Bilateral breath sounds clear to auscultation [] Abdomen: Bowel sounds normal, soft, no tenderness, no masses, no pulsatile masses. [] Skin: Warm, dry, no erythema, no rash. [] Back: No tenderness, no CVA tenderness. [] Extremities: No tenderness, no edema. [] Neurologic: Alert and oriented X 3, CN II-XII, normal motor function, normal sensory function, no focal deficits noted, cerebellar function intact bilaterally with finger to nose and heel to white [] Psychologic: Affect normal, judgement normal, mood normal. [] Current Patient Data Vital Signs Vital Signs Date Time Temp Pulse Resp B/P (MAP) Pulse Ox O2 Delivery O2 Flow Rate FiO2 09/23/18 20:43 74 20 98 09/23/18 18:37 97.9 145/86 (105) Room Air 97.9 Lab Values Laboratory Tests Test 09/23/18 19:30 White Blood Count 10.7 x10^3/uL (4.0-11.0) Red Blood Count 4.48 x10^6/uL (3.50-5.40) Hemoglobin 13.7 g/dL (12.0-15.5) Hematocrit 40.5 % (36.0-47.0) Mean Corpuscular Volume 90 fL (79-100) Mean Corpuscular Hemoglobin 31 pg (25-35) Mean Corpuscular Hemoglobin Concent 34 g/dL (31-37) Red Cell Distribution Width 14.5 % (11.5-14.5) Platelet Count 252 x10^3/uL (140-400) Neutrophils (%) (Auto) 65 % (31-73) Lymphocytes (%) (Auto) 26 % (24-48) Monocytes (%) (Auto) 7 % (0-9) Eosinophils (%) (Auto) 1 % (0-3) Basophils (%) (Auto) 1 % (0-3) Neutrophils # (Auto) 7.0 x10^3uL (1.8-7.7) Lymphocytes # (Auto) 2.8 x10^3/uL (1.0-4.8) Monocytes # (Auto) 0.7 x10^3/uL (0.0-1.1) Eosinophils # (Auto) 0.1 x10^3/uL (0.0-0.7) Basophils # (Auto) 0.1 x10^3/uL (0.0-0.2) Sodium Level 145 mmol/L (136-145) Potassium Level 3.1 mmol/L (3.5-5.1) L Chloride Level 107 mmol/L (98-107) Carbon Dioxide Level 27 mmol/L (21-32) Anion Gap 11 (6-14) Blood Urea Nitrogen 20 mg/dL (7-20) Creatinine 0.9 mg/dL (0.6-1.0) Estimated GFR (Cockcroft-Gault) 72.6 Glucose Level 89 mg/dL (70-99) Calcium Level 8.9 mg/dL (8.5-10.1) Laboratory Tests 09/23/18 19:30 Laboratory Tests 09/23/18 19:30 EKG EKG [] Radiology/Procedures Radiology/Procedures CT Head Impression: No intracranial hemorrhage. Electronically signed by: El Ayala MD (09/23/2018 7:31 PM) [facility] [] Course & Med Decision Making Course & Med Decision Making Pertinent Labs and Imaging studies reviewed. (See chart for details) []Resolution of nausea. Tolerating PO. Head CT with no acute findings. Advised continued follow up and compliance with medications. Return precautions given. pt verbalized understanding. All questions answered Dragmyron Disclaimer Dragon Disclaimer This electronic medical record was generated, in whole or in part, using a voice recognition dictation system. Departure Departure Impression: Primary Impression: Migraine headache Additional Impression: Seizure Disposition: HOME, SELF-CARE Condition: STABLE Referrals: FLOR WHITLOCK MD (PCP) Patient Instructions: Seizure, Adult Additional Instructions: Thank you for coming to [facility]. Please repeat the attached handouts. Please follow-up with your primary care physician. Return to the ER if your symptoms worsen or you have any other concerns. Please continue your follow-up with your neurologist and neurosurgeon. Problem Qualifiers PIPE STODDARD DO Sep 23, 2018 20:32
[2018-09-23 20:43] VITALS: BP 138/78
== END 2018-09-23 20:43 | disposition home or self-care (01) ==
LOC: ER 17:14
DX: R56.9 Unspecified convulsions (principal); G43.909 Migraine, unspecified, not intractable, without status migrainosus; F41.9 Anxiety disorder, unspecified; E11.9 Type 2 diabetes mellitus without complications; M79.7 Fibromyalgia; I10 Essential (primary) hypertension; F20.9 Schizophrenia, unspecified; J45.909 Unspecified asthma, uncomplicated; Z88.8 Allergy status to other drugs, medicaments and biological substances; Z88.1 Allergy status to other antibiotic agents; Z88.5 Allergy status to narcotic agent; Z88.2 Allergy status to sulfonamides; Z91.030 Bee allergy status; Z91.041 Radiographic dye allergy status; Z91.038 Other insect allergy status; Z91.011 Allergy to milk products
CPT/HCPCS: 36415; 70450; 80048; 85025; 99285; Q0162

== ENCOUNTER → 2018-10-28 | Outpatient (CLI) | payer OTHER ==
[~2018-10-28] MED LIST changes: +HYDR-3164 PO; -HYDR-971 PO; -OXYC-323 PO; +OXYC1TAB15 PO
--- NOTE | 2018-10-28 13:13 | EEG ---
DATE OF SERVICE: 10/28/2018 EEG #: [id number] OBJECTIVE: This is a 33-year-old female patient who had abnormal brain MRI study suggesting possible seizure foci. EEG was requested to help rule out seizure. METHODS: Twenty electrodes were applied according to the international 10-20 electrode placement system. EKG monitoring, hyperventilation, intermittent photic stimulation, monopolar and bipolar montages were routinely utilized. The record was obtained on a digital system with video monitoring. FINDINGS: 1. Background: The patient was recorded in the awake and drowsy states. No actual sleep state was recorded. The overall background amplitude was 10-30 microvolts. A posterior dominant rhythm of 8-9 Hz was observed. 2. Abnormalities: No specific epileptiform discharge or electrographic seizure was seen. No focal or diffuse slowing. 3. Activation: Hyperventilation was performed with fair efforts and normal response. Intermittent photic stimulation was performed with photic driving. No specific epileptiform discharge or electrographic seizure induced by hyperventilation or intermittent photic stimulation. IMPRESSION: This EEG is a normal study for the awake and drowsy states. No actual sleep state was recorded. No focal, lateralizing, specific epileptiform discharge, or electrographic seizure is seen. HARJINDER PRESSLEY MD DR: MORIAH/anitra JOB#: [id number] / [id number] KACEY
== END | disposition home or self-care (01) ==
LOC: RT 07:51
PROVIDERS: ATTEND Psychiatry & Neurology Neurology
DX: R93.0 Abnormal findings on diagnostic imaging of skull and head, not elsewhere classified (principal)
CPT/HCPCS: 95816

== ENCOUNTER 2018-11-19 12:12 | Emergency (ER) | payer OTHER ==
[~2018-11-19] VITALS: Ht 165.1 cm; Wt 133.4 kg
[~2018-11-19 12:12] MED LIST changes: +ALBU2.5V8 IH; -ALBU8.5H8 IH
[2018-11-19 12:50] VITALS: BP 126/84
[2018-11-19] MEDS ORDERED: ONDA4TAB12 PO (13:04)
[2018-11-19] MEDS ORDERED: TRAM50TA PO (13:04)
--- NOTE | 2018-11-19 13:06 | PHYS DOC ---
Past Medical History Past Medical History: Anxiety, Asthma, Diabetes-Type II, Fibromyalgia, Hypertension, Migraines, Seizure, Schizophrenia, Other Additional Past Medical Histor: ADD, BPD, INTERSTITIAL CYSTITIS Past Surgical History: Hysterectomy, Other Additional Past Surgical Histo: wisdom teeth, cryo, heart cath- negative,exp lap, uterine lap Alcohol Use: Occasionally Drug Use: None Adult General Chief Complaint Chief Complaint: HEADACHE HPI HPI Patient is a 33 year old female who presents with migraine with nausea and vomiting and photophobia for the last 3 days. Patient states this feels like her normal migraines. She states medications aren't working. Patient rates her pain a 10 out of 10. Review of Systems Review of Systems Constitutional: Denies fever or chills [] Eyes: Denies change in visual acuity, redness, or eye pain [] HENT: Denies nasal congestion or sore throat [] Respiratory: Denies cough or shortness of breath [] Cardiovascular: No additional information not addressed in HPI [] GI: Denies abdominal pain. Nausea, vomiting, denies bloody stools or diarrhea [] : Denies dysuria or hematuria [] Musculoskeletal: Denies back pain or joint pain [] Integument: Denies rash or skin lesions [] Neurologic: Migraine headache headache, denies focal weakness or sensory changes [] All other systems were reviewed and found to be within normal limits, except as documented in this note. Current Medications Current Medications Current Medications Medications (Trade) Dose Ordered Sig/Ric Start Time Stop Time Status Last Admin Dose Admin Diphenhydramine HCl (Benadryl) 50 mg 1X ONCE 11/19/18 13:15 11/19/18 13:16 DC 11/19/18 13:24 50 MG Ketorolac Tromethamine (Toradol Im) 60 mg 1X ONCE 11/19/18 13:15 11/19/18 13:16 DC 11/19/18 13:24 60 MG Prochlorperazine Edisylate (Compazine) 10 mg 1X ONCE 11/19/18 13:15 11/19/18 13:16 DC 11/19/18 13:24 10 MG Allergies Allergies Allergies Coded Allergies Type Severity Reaction Last Updated Verified aripiprazole Allergy Severe "ATTEMPTS SUICIDE" 02/24/14 Yes bee venom protein (honey bee) Allergy Severe Anaphylaxis 02/26/18 Yes cephalexin Allergy Severe Anaphylaxis 02/26/18 Yes coconut oil Allergy Severe swelling 02/24/14 Yes divalproex sodium Allergy Severe ATTEMPTS SUICIDE 02/24/14 Yes hydroxychloroquine Allergy Severe "asthma" 02/24/14 Yes venlafaxine Allergy Severe 02/26/18 Yes venom-wasp Allergy Severe Anaphylaxis 02/26/18 Yes Sulfa (Sulfonamide Antibiotics) Allergy Intermediate 03/05/18 Yes codeine Allergy Intermediate 02/04/18 Yes hydroxyzine Allergy Intermediate 04/21/14 Yes red dye Allergy Intermediate 04/21/14 Yes lactose Adverse Reaction Intermediate 03/05/18 Yes prazosin Adverse Reaction Intermediate 02/24/14 Yes Physical Exam Physical Exam Constitutional: Well developed, well nourished, no acute distress, non-toxic appearance. [] HENT: Normocephalic, atraumatic, bilateral external ears normal, oropharynx moist, no oral exudates, nose normal. [] Eyes: PERRLA, EOMI, conjunctiva normal, no discharge. Photophobia [] Neck: Normal range of motion, no tenderness, supple, no stridor. [] Cardiovascular:Heart rate regular rhythm, no murmur [] Lungs & Thorax: Bilateral breath sounds clear to auscultation [] Abdomen: Bowel sounds normal, soft, no tenderness, no masses, no pulsatile masses. [] Skin: Warm, dry, no erythema, no rash. [] Back: No tenderness, no CVA tenderness. [] Extremities: No tenderness, no cyanosis, no clubbing, ROM intact, no edema. [] Neurologic: Alert and oriented X 3, normal motor function, normal sensory function, no focal deficits noted. [] Psychologic: Affect normal, judgement normal, mood normal. [] Current Patient Data Vital Signs Vital Signs Date Time Temp Pulse Resp B/P (MAP) Pulse Ox O2 Delivery O2 Flow Rate FiO2 11/19/18 12:50 97.6 62 18 126/84 (98) 99 Room Air 97.6 EKG EKG [] Radiology/Procedures Radiology/Procedures [] Course & Med Decision Making Course & Med Decision Making Patient is a 33 year old female who presents with migraine with nausea and vomiting and photophobia for the last 3 days. Patient states this feels like her normal migraines. She states medications aren't working. Patient rates her pain a 10 out of 10. Afebrile. Patient denies any fevers, dizziness, chest pain , shortness of air, visual changes, numbness or tingling, weaknesses. Lungs are clear to auscultation all lobes. Abdomen is soft and nontender. PERRLA. Patient is given compazine, Benadryl, Toradol. Patient is sent home with tramadol and Zofran. Patient needs to follow-up with her primary care doctor on Thursday and back sooner if she is getting no better. Dragon Disclaimer Dragon Disclaimer This electronic medical record was generated, in whole or in part, using a voice recognition dictation system. Departure Departure Impression: Primary Impression: Migraine Disposition: HOME, SELF-CARE Condition: STABLE Referrals: FLOR WHITLOCK MD (PCP) Patient Instructions: Migraine Headache Additional Instructions: FOLLOW UP WITH PRIMARY CARE IF YOU NEED TOO. TAKE MEDICATIONS PRESCRIBED. Scripts Tramadol Hcl (TRAMADOL HCL) 50 Mg Tablet 50 MG PO Q6HRS PRN for PAIN, #15 TAB Prov: POWER JUNIOR APRN 11/19/18 Ondansetron (ONDANSETRON ODT) 4 Mg Tab.rapdis 4 MG PO BID PRN for NAUSEA/VOMITING, #20 TAB Prov: POWER JUNIOR APRN 11/19/18 Problem Qualifiers Primary Impression: Migraine Migraine type: unspecified Status migrainosus presence: without status migrainosus Intractability: not intractable Qualified Codes: G43.909 - Migraine, unspecified, not intractable, without status migrainosus POWER JUNIOR APRN Nov 19, 2018 13:06
[2018-11-19] MEDS ORDERED: PROCHLORPERAZINE 10 MG/2 ML VIAL. IM ONE (13:15)
[2018-11-19] MEDS ORDERED: diphenhydrAMINE 50 MG/ML VIAL IM ONE (13:15)
[2018-11-19] MEDS ORDERED: KETOROLAC 60 MG/2 ML VIAL. IM ONE (13:15)
== END 2018-11-19 13:55 | disposition home or self-care (01) ==
LOC: ER 12:12
DX: G43.909 Migraine, unspecified, not intractable, without status migrainosus (principal); F41.9 Anxiety disorder, unspecified; I10 Essential (primary) hypertension; R11.2 Nausea with vomiting, unspecified; F20.9 Schizophrenia, unspecified; J45.909 Unspecified asthma, uncomplicated; E11.9 Type 2 diabetes mellitus without complications; Z90.710 Acquired absence of both cervix and uterus; Z88.5 Allergy status to narcotic agent; Z88.2 Allergy status to sulfonamides; Z88.8 Allergy status to other drugs, medicaments and biological substances; Z91.030 Bee allergy status; Z91.041 Radiographic dye allergy status; Z91.018 Allergy to other foods
CPT/HCPCS: 96372; 99283; J0780; J1200; J1885

== ENCOUNTER 2019-01-14 20:05 | Emergency (ER) | payer OTHER ==
[~2019-01-14] VITALS: Ht 165.1 cm; Wt 130.6 kg
[~2019-01-14 20:05] MED LIST changes: -AMLO10TA6 PO; +AMLO10TA8 PO; -GABA600T2 PO; +GABA600T7 PO; +METO10TA81 PO; +ONDA4TAB12 PO; -QUET200T6 PO; +QUET200T7 PO; +TRAM50TA PO
[2019-01-14 20:29] VITALS: BP 127/85
[2019-01-14] MEDS ORDERED: KETOROLAC 60 MG/2 ML VIAL. IM ONE (21:00)
[2019-01-14] MEDS ORDERED: IPRATRPIUM/ALBUTEROL 0.5/2.5MG 3 ML NEBU. NEB ONE (21:00)
[2019-01-14] MEDS ORDERED: PROCHLORPERAZINE 10 MG/2 ML VIAL. IM ONE (21:00)
[2019-01-14] MEDS ORDERED: diphenhydrAMINE HCL 25 MG CAPSULE PO ONE (21:00)
--- NOTE | 2019-01-14 21:32 | PHYS DOC ---
Past Medical History Past Medical History: Anxiety, Asthma, Diabetes-Type II, Fibromyalgia, Hypertension, Migraines, Seizure, Other Additional Past Medical Histor: ADD, BPD, INTERSTITIAL CYSTITIS Past Surgical History: Hysterectomy, Tonsillectomy, Other Additional Past Surgical Histo: wisdom teeth, cryo, heart cath- negative,exp lap, uterine lap Alcohol Use: Occasionally Drug Use: None Adult General Chief Complaint Chief Complaint: HEADACHE HPI HPI Patient is a 33 year old female with history of migraine headaches, fibromyalgia, hypertension, diabetes type 2, anxiety, asthma, who presents to the ED today complaining of a 7 out of 10 throbbing left sided migraine headache that began 2 days ago. Patient is also complaining of nausea and photophobia. She states this migraine headache is consistent with her regular migraines. Patient is also complaining of bronchitis. She states she's been fighting it for 2 weeks. She states she was seen by the PCP a couple days ago, was started on Zithromax, prednisone and breathing treatments. She states the PCP informed her she could also have RSV. Patient states symptoms are ongoing. Denies any fever. Review of Systems Review of Systems Constitutional: Denies fever or chills [] Eyes: Denies change in visual acuity, redness, or eye pain [] HENT: Denies nasal congestion or sore throat [] Respiratory: Reports cough denies shortness of breath [] Cardiovascular: No additional information not addressed in HPI [] GI: Reports nausea. Denies abdominal pain vomiting, bloody stools or diarrhea [] : Denies dysuria or hematuria [] Musculoskeletal: Denies back pain or joint pain [] Integument: Denies rash or skin lesions [] Neurologic: Reports migraine headache, denies focal weakness or sensory changes [] All other systems were reviewed and found to be within normal limits, except as documented in this note. Current Medications Current Medications Current Medications Medications (Trade) Dose Ordered Sig/Ric Start Time Stop Time Status Last Admin Dose Admin Albuterol/ Ipratropium (Duoneb) 3 ml 1X ONCE 01/14/19 21:00 01/14/19 21:01 DC 01/14/19 20:59 3 ML Diphenhydramine HCl (Benadryl) 25 mg 1X ONCE 01/14/19 21:00 01/14/19 21:01 DC 01/14/19 21:12 25 MG Ketorolac Tromethamine (Toradol Im) 60 mg 1X ONCE 01/14/19 21:00 01/14/19 21:01 DC 01/14/19 21:13 60 MG Prochlorperazine Edisylate (Compazine) 10 mg 1X ONCE 01/14/19 21:00 01/14/19 21:01 DC 01/14/19 21:13 10 MG Allergies Allergies Allergies Coded Allergies Type Severity Reaction Last Updated Verified aripiprazole Allergy Severe "ATTEMPTS SUICIDE" 02/24/14 Yes bee venom protein (honey bee) Allergy Severe Anaphylaxis 02/26/18 Yes cephalexin Allergy Severe Anaphylaxis 02/26/18 Yes coconut oil Allergy Severe swelling 02/24/14 Yes divalproex sodium Allergy Severe ATTEMPTS SUICIDE 02/24/14 Yes hydroxychloroquine Allergy Severe "asthma" 02/24/14 Yes venlafaxine Allergy Severe 02/26/18 Yes venom-wasp Allergy Severe Anaphylaxis 02/26/18 Yes Sulfa (Sulfonamide Antibiotics) Allergy Intermediate 03/05/18 Yes codeine Allergy Intermediate 02/04/18 Yes hydroxyzine Allergy Intermediate 04/21/14 Yes red dye Allergy Intermediate 04/21/14 Yes lactose Adverse Reaction Intermediate 03/05/18 Yes prazosin Adverse Reaction Intermediate 02/24/14 Yes Physical Exam Physical Exam Constitutional: Well developed, well nourished, no acute distress, non-toxic appearance. [] HENT: Normocephalic, atraumatic, bilateral external ears normal, oropharynx moist, no oral exudates, nose normal. [] Eyes: PERRLA, EOMI, conjunctiva normal, no discharge. [] Neck: Normal range of motion, no tenderness, supple, no stridor. [] Cardiovascular:Heart rate regular rhythm, no murmur [] Lungs & Thorax: Bilateral breath sounds clear to auscultation [] Abdomen: Bowel sounds normal, soft, no tenderness, no masses, no pulsatile masses. [] Skin: Warm, dry, no erythema, no rash. [] Back: No tenderness, no CVA tenderness. [] Extremities: No tenderness, no cyanosis, no clubbing, ROM intact, no edema. [] Neurologic: Alert and oriented X 3, normal motor function, normal sensory function, no focal deficits noted. Cranial nerves II through XII intact Psychologic: Affect normal, judgement normal, mood normal. [] Current Patient Data Vital Signs Vital Signs Date Time Temp Pulse Resp B/P (MAP) Pulse Ox O2 Delivery O2 Flow Rate FiO2 01/14/19 21:01 97 Room Air 01/14/19 20:29 97.3 65 20 127/85 (99) 97.3 EKG EKG [] Radiology/Procedures Radiology/Procedures [] Course & Med Decision Making Course & Med Decision Making Pertinent Labs and Imaging studies reviewed. (See chart for details) This is a 33 year old well known to this ED presenting to the ED for migraine headaches, there is nothing unusual about her headache today. Patient was given migraine cocktail nonnarcotic. She is also complaining of chronic bronchitis. She has followed up with the PCP, her vitals are stable, her lungs are clear, see history of present illness. I requested she continue following up with the PCP and continue using breathing treatments at home as needed. She was discharged with Imitrex. Dragon Disclaimer Dragon Disclaimer This electronic medical record was generated, in whole or in part, using a voice recognition dictation system. Departure Departure Impression: Primary Impression: Migraine headache Additional Impression: Bronchitis Disposition: HOME, SELF-CARE Condition: STABLE Referrals: FLOR WHITLOCK MD (PCP) Patient Instructions: Acute Bronchitis, Migraine Headache Additional Instructions: You were seen for migraine headache and bronchitis. Continue breathing treatments at home. Follow-up with your doctor in the course of next week. Scripts Sumatriptan Succinate (IMITREX) 100 Mg Tablet 1 TAB PO UD, #9 TAB 1 Refill Prov: YOUNG PANTOJA APRN 01/14/19 Problem Qualifiers Primary Impression: Migraine headache Migraine type: unspecified Status migrainosus presence: without status migrainosus Intractability: not intractable Qualified Codes: G43.909 - Migraine, unspecified, not intractable, without status migrainosus YOUNG PANTOJA APRN Jan 14, 2019 21:32
[2019-01-14] MEDS ORDERED: SUMA100T3 PO (21:40)
[2019-03-04] MEDS ORDERED: FURO-68 PO (22:34)
[2019-03-04] MEDS ORDERED: LORA-434 PO (22:34)
[2019-03-05] MEDS ORDERED: POTA10TA12 PO (12:17)
[2019-03-05] MEDS ORDERED: NAPR-514 PO (12:32)
[2019-03-06] MEDS ORDERED: ACET250T2 PO (10:01)
[2019-03-06] MEDS ORDERED: DICY10CA3 PO (10:01)
[2019-03-06] MEDS ORDERED: AMLO10TA8 PO (10:01)
[2019-03-06] MEDS ORDERED: OXYC1TAB15 PO (10:01)
== END 2019-01-14 21:47 | disposition home or self-care (01) ==
LOC: ER 20:05
DX: G43.909 Migraine, unspecified, not intractable, without status migrainosus (principal); J40 Bronchitis, not specified as acute or chronic; I10 Essential (primary) hypertension; E11.9 Type 2 diabetes mellitus without complications; J45.909 Unspecified asthma, uncomplicated; F41.9 Anxiety disorder, unspecified; Z90.89 Acquired absence of other organs; Z88.5 Allergy status to narcotic agent; Z88.2 Allergy status to sulfonamides; Z88.1 Allergy status to other antibiotic agents; Z91.041 Radiographic dye allergy status; Z91.011 Allergy to milk products; Z91.030 Bee allergy status; Z91.018 Allergy to other foods
CPT/HCPCS: 94640; 96372; 99283; J0780; J1885; J7620; Q0163

== ENCOUNTER 2019-01-17 09:12 | Emergency (ER) | payer OTHER ==
[~2019-01-17] VITALS: Ht 167.6 cm; Wt 130.6 kg
[~2019-01-17 09:12] MED LIST changes: +SUMA100T3 PO
[2019-01-17] MEDS ORDERED: ONDANSETRON PF 4 MG/2 ML VIAL. IV ONE (11:00)
[2019-01-17] MEDS ORDERED: IV NORMAL SALINE 1000ML BAG 1,000 ML IV ONE (11:00)
[2019-01-17 11:16] LABS: BILIRUBIN,URINE NEGATIVE (NEG); CLARITY,URINE CLEAR; COLOR,URINE YELLOW; NITRITE,URINE NEGATIVE (NEG); PROTEIN,URINE NEGATIVE (NEG-TRACE); UROBILINOGEN,URINE 0.2 mg/dL (0.2 mg/dL)
[2019-01-17 11:31] LABS: SQUAMOUS EPITHELIAL CELL,UR MOD /LPF
[2019-01-17 11:32] LABS: BACTERIA,URINE FEW /HPF (0-FEW); RBC,URINE 0 /HPF (0-2); WBC,URINE OCC /HPF (0-4)
[2019-01-17 11:35] LABS: BASO # 0.1 x10^3/uL (0.0-0.2); BASO % 1 % (0-3); EOS # 0.1 x10^3/uL (0.0-0.7); EOS % 2 % (0-3); HEMOGLOBIN 12.7 g/dL (12.0-15.5); LYMPH # 1.4 x10^3/uL (1.0-4.8); LYMPH % 17 % (24-48); MEAN CORPUSCULAR HEMOGLOBIN 31 pg (25-35); MEAN CORPUSCULAR HGB CONC 34 g/dL (31-37); MEAN CORPUSCULAR VOLUME 91 fL (79-100); MONO # 0.6 x10^3/uL (0.0-1.1); MONO % 7 % (0-9); NEUT # 6.3 x10^3uL (1.8-7.7); NEUT % 74 % (31-73); PLATELET COUNT 229 x10^3/uL (140-400); RED BLOOD COUNT 4.17 x10^6/uL (3.50-5.40); WHITE BLOOD COUNT 8.5 x10^3/uL (4.0-11.0)
[2019-01-17 11:42] LABS: CREATININE 0.8 mg/dL (0.6-1.0); GFR 83.1; POTASSIUM 3.3 mmol/L (3.5-5.1)
[2019-01-17 11:48] LABS: ALBUMIN 3.3 g/dL (3.4-5.0); ALBUMIN/GLOBULIN RATIO 0.9 (1.0-1.7); TOTAL BILIRUBIN 0.4 mg/dL (0.2-1.0)
--- NOTE | 2019-01-17 12:07 | PHYS DOC ---
Past Medical History Past Medical History: Anxiety, Asthma, Diabetes-Type II, Fibromyalgia, Hypertension, Migraines, Seizure, Other Additional Past Medical Histor: ADD, BPD, INTERSTITIAL CYSTITIS Past Surgical History: Hysterectomy, Tonsillectomy, Other Additional Past Surgical Histo: wisdom teeth, cryo, heart cath- negative,exp lap, uterine lap Alcohol Use: Occasionally Drug Use: None Adult General Chief Complaint Chief Complaint: DIZZY/LIGHT HEADED HPI HPI 33-year-old female presents to ER with complaints of dizziness- reporting hx of chronic vertigo. She reports she was evaluated in the ER on Thursday for Migraine and has had bronchitis. Pt reports over the weekend she had nausea denying any V /D episodes. She reports she has had decreased fluid intake d/t nausea and did take her Rx'd Phenergen this morning. She reports she also took Meclizine. Pt denies VICENTE and reports she was evaluated/tx'd in ER on Thursday for a migraine VICENTE which has since subsided. She denies vision changes, eye pain, photosensitivity , or floaters. She reports she has had less fluid intake d/t intermittent nausea. She denies any falls/injury. She denies fever, urinary sxs, CP, or palpitations. Review of Systems Review of Systems Constitutional: Denies fever or chills [] Eyes: Denies change in visual acuity, redness, or eye pain [] HENT: Denies nasal congestion or sore throat [] Respiratory: Denies shortness of breath. Reports nonprod. cough Cardiovascular: Denies CP/palpitations GI: Denies abdominal pain, vomiting, bloody stools or diarrhea. Reports intermittent nausea and decreased appetite/fluid intake : Denies urinary sxs Musculoskeletal: Denies acute back/neck pain or joint pain [] Integument: Denies rash, swelling or skin lesions [] Neurologic: Denies headache, focal weakness or sensory changes. Reports dizziness Endocrine: Denies polyuria or polydipsia [] All other systems were reviewed and found to be within normal limits, except as documented in this note. Current Medications Current Medications Current Medications Medications (Trade) Dose Ordered Sig/Ric Start Time Stop Time Status Last Admin Dose Admin Ondansetron HCl (Zofran) 4 mg 1X ONCE 01/17/19 11:00 01/17/19 11:01 DC 01/17/19 11:26 4 MG Sodium Chloride 1,000 ml @ 1,000 mls/hr 1X ONCE 01/17/19 11:00 01/17/19 11:59 DC 01/17/19 11:26 1,000 MLS/HR Allergies Allergies Allergies Coded Allergies Type Severity Reaction Last Updated Verified aripiprazole Allergy Severe "ATTEMPTS SUICIDE" 02/24/14 Yes bee venom protein (honey bee) Allergy Severe Anaphylaxis 02/26/18 Yes cephalexin Allergy Severe Anaphylaxis 02/26/18 Yes coconut oil Allergy Severe swelling 02/24/14 Yes divalproex sodium Allergy Severe ATTEMPTS SUICIDE 02/24/14 Yes hydroxychloroquine Allergy Severe "asthma" 02/24/14 Yes venlafaxine Allergy Severe 02/26/18 Yes venom-wasp Allergy Severe Anaphylaxis 02/26/18 Yes Sulfa (Sulfonamide Antibiotics) Allergy Intermediate 03/05/18 Yes codeine Allergy Intermediate 02/04/18 Yes hydroxyzine Allergy Intermediate 04/21/14 Yes red dye Allergy Intermediate 04/21/14 Yes lactose Adverse Reaction Intermediate 03/05/18 Yes prazosin Adverse Reaction Intermediate 02/24/14 Yes Physical Exam Physical Exam Constitutional: Well developed, well nourished, no acute distress, non-toxic appearance. Clear speech. Answering questions appropr. HENT: Normocephalic, atraumatic, bilateral ears normal, mucous membranes pink/ dry, no oral exudates, nose normal. [] Eyes: 3mm PERRLA, EOMI- no eye pain with movements, no nystagmus, conjunctiva normal, no discharge. [] Neck: Normal range of motion, no tenderness, supple, no stridor. [] Cardiovascular: Heart rate regular rhythm, no murmur [] Lungs & Thorax: Bilateral breath sounds clear to auscultation- resp. equal/ nonlabored Abdomen: Bowel sounds normal, soft/obese- no distention/rigidity, no tenderness Skin: Warm, dry, no erythema, no rash. [] Back: No tenderness, no CVA tenderness. [] Extremities: No tenderness, no cyanosis, no clubbing, ROM intact, no edema. [] Neurologic: Alert and oriented X 3, normal motor function, normal sensory function, no focal deficits noted. [] Psychologic: Affect normal, judgement normal, mood normal. [] Current Patient Data Vital Signs Lab Values Laboratory Tests Test 01/17/19 10:11 01/17/19 11:30 Urine Collection Type Void Urine Color Yellow Urine Clarity Clear Urine pH 6.0 Urine Specific Heth 1.010 Urine Protein Negative mg/dL (NEG-TRACE) Urine Glucose (UA) Negative mg/dL (NEG) Urine Ketones (Stick) Negative mg/dL (NEG) Urine Blood Negative (NEG) Urine Nitrite Negative (NEG) Urine Bilirubin Negative (NEG) Urine Urobilinogen Dipstick 0.2 mg/dL (0.2 mg/dL) Urine Leukocyte Esterase Negative (NEG) Urine RBC 0 /HPF (0-2) Urine WBC Occ /HPF (0-4) Urine Squamous Epithelial Cells Mod /LPF Urine Bacteria Few /HPF (0-FEW) White Blood Count 8.5 x10^3/uL (4.0-11.0) Red Blood Count 4.17 x10^6/uL (3.50-5.40) Hemoglobin 12.7 g/dL (12.0-15.5) Hematocrit 38.0 % (36.0-47.0) Mean Corpuscular Volume 91 fL (79-100) Mean Corpuscular Hemoglobin 31 pg (25-35) Mean Corpuscular Hemoglobin Concent 34 g/dL (31-37) Red Cell Distribution Width 13.0 % (11.5-14.5) Platelet Count 229 x10^3/uL (140-400) Neutrophils (%) (Auto) 74 % (31-73) H Lymphocytes (%) (Auto) 17 % (24-48) L Monocytes (%) (Auto) 7 % (0-9) Eosinophils (%) (Auto) 2 % (0-3) Basophils (%) (Auto) 1 % (0-3) Neutrophils # (Auto) 6.3 x10^3uL (1.8-7.7) Lymphocytes # (Auto) 1.4 x10^3/uL (1.0-4.8) Monocytes # (Auto) 0.6 x10^3/uL (0.0-1.1) Eosinophils # (Auto) 0.1 x10^3/uL (0.0-0.7) Basophils # (Auto) 0.1 x10^3/uL (0.0-0.2) Sodium Level 140 mmol/L (136-145) Potassium Level 3.3 mmol/L (3.5-5.1) L Chloride Level 104 mmol/L (98-107) Carbon Dioxide Level 28 mmol/L (21-32) Anion Gap 8 (6-14) Blood Urea Nitrogen 15 mg/dL (7-20) Creatinine 0.8 mg/dL (0.6-1.0) Estimated GFR (Cockcroft-Gault) 83.1 BUN/Creatinine Ratio 19 (6-20) Glucose Level 94 mg/dL (70-99) Calcium Level 9.0 mg/dL (8.5-10.1) Magnesium Level 2.0 mg/dL (1.8-2.4) Total Bilirubin 0.4 mg/dL (0.2-1.0) Aspartate Amino Transferase (AST) 18 U/L (15-37) Alanine Aminotransferase (ALT) 30 U/L (14-59) Alkaline Phosphatase 84 U/L (46-116) Total Protein 7.0 g/dL (6.4-8.2) Albumin 3.3 g/dL (3.4-5.0) L Albumin/Globulin Ratio 0.9 (1.0-1.7) L Laboratory Tests 01/17/19 11:30 Laboratory Tests 01/17/19 11:30 EKG EKG EKG obtained 01/17/19 at [address] Riley Radiology/Procedures Radiology/Procedures [] Course & Med Decision Making Course & Med Decision Making Pertinent Labs reviewed. (See chart for details) 1150: Patient was evaluated in the ER for complaints of dizziness and nausea and vomiting. Patient has had no active vomiting while in the ER and was provided with IV fluids and dose of Zofran- reporting much improved. At this time patient is reporting she is planning to go to lunch when discharged from the ER as she has an appetite with improved sxs. Test results were discussed with pt- EKG with no acute ST elevation/STEMI- WBCs NL at 8.5; K+ 3.3 discussed oral replacement and pt is just preferring to be dc'd so she can eat lunch. UA neg. for infection/ketones. Patient states she has prescriptions for Phenergan and Zofran at home as well as meclizine as she does have chronic vertigo. With pt reporting this is similar to previous episodes no imaging was done and pt comfortable with this. Education provided on s&s to return to ER for and d/c instructions were discussed. At time of discussion pt was in no visible distress and remains nontoxic in appearance. Pt to f/u with her PCP for re-eval. Kari Disclaimer Dragon Disclaimer This electronic medical record was generated, in whole or in part, using a voice recognition dictation system. Departure Departure Impression: Primary Impression: Dizziness Additional Impression: Nausea & vomiting Disposition: 01 HOME, SELF-CARE Condition: STABLE Referrals: FLOR WHITLOCK MD (PCP) Patient Instructions: Dizziness, Nausea and Vomiting Additional Instructions: Continue home prescriptions as prescribed. If symptoms persist follow-up with primary care physician for reevaluation. Drink plenty of fluids to keep herself hydrated and slowly advance diet as tolerated. Slow position changes if dizziness continues to avoid falls. Problem Qualifiers THIERNO DUGGAN APRN Jan 17, 2019 12:07
[2019-01-17 12:42] VITALS: BP 112/68
--- NOTE | 2019-01-18 09:42 | EKG ---
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
[2019-03-04] MEDS ORDERED: FURO-68 PO (22:34)
[2019-03-04] MEDS ORDERED: LORA-434 PO (22:34)
[2019-03-05] MEDS ORDERED: POTA10TA12 PO (12:17)
[2019-03-05] MEDS ORDERED: NAPR-514 PO (12:32)
[2019-03-06] MEDS ORDERED: DICY10CA3 PO (10:01)
[2019-03-06] MEDS ORDERED: AMLO10TA8 PO (10:01)
[2019-03-06] MEDS ORDERED: ACET250T2 PO (10:01)
[2019-03-06] MEDS ORDERED: OXYC1TAB15 PO (10:01)
== END 2019-01-17 12:55 | disposition home or self-care (01) ==
LOC: ER 09:27
DX: R42 Dizziness and giddiness (principal); R11.2 Nausea with vomiting, unspecified; G43.909 Migraine, unspecified, not intractable, without status migrainosus; I10 Essential (primary) hypertension; E11.9 Type 2 diabetes mellitus without complications; J45.909 Unspecified asthma, uncomplicated; F41.9 Anxiety disorder, unspecified; Z88.5 Allergy status to narcotic agent; Z88.2 Allergy status to sulfonamides; Z88.1 Allergy status to other antibiotic agents; Z91.011 Allergy to milk products; Z91.030 Bee allergy status; Z91.018 Allergy to other foods; Z88.8 Allergy status to other drugs, medicaments and biological substances
CPT/HCPCS: 36415; 80053; 81001; 83735; 85025; 93005; 96361; 96374; 99284; J2405; J7030

== ENCOUNTER 2019-01-26 13:45 | Emergency (ER) | payer OTHER ==
[~2019-01-26] VITALS: Ht 165.1 cm; Wt 134.7 kg
[2019-01-26 13:54] VITALS: BP 139/73
--- NOTE | 2019-01-26 14:10 | PHYS DOC ---
Past Medical History Past Medical History: Anxiety, Asthma, Diabetes-Type II, Fibromyalgia, Hypertension, Migraines, Seizure, Other Additional Past Medical Histor: ADD, BPD, INTERSTITIAL CYSTITIS Past Surgical History: Hysterectomy, Tonsillectomy, Other Additional Past Surgical Histo: wisdom teeth, cryo, heart cath- negative,exp lap, uterine lap Alcohol Use: Occasionally Drug Use: None Adult General Chief Complaint Chief Complaint: CHEST PAIN HPI HPI Patient is a 33 year old female is admitted to ER today for evaluation of chest pain that started about 1 hour ago. Patient described the pain is aching, no radiation anywhere. Patient denies any trouble breathing. She denies any nausea vomiting, no cough, no fever. This Physician had seen this patient numerous times at different hospitals in the area for different medical problems. Patient says she lives in [facility] however this patient was seen by this physician at [facility] in [place], [place], [facility] in [facility] in the past for chest pain. Previous workup has shown no medical problem of her chest pain. Review of Systems Review of Systems Constitutional: Denies fever or chills [] Eyes: Denies change in visual acuity, redness, or eye pain [] HENT: Denies nasal congestion or sore throat [] Respiratory: Denies cough or shortness of breath [] Cardiovascular: No additional information not addressed in HPI [] GI: Denies abdominal pain, nausea, vomiting, bloody stools or diarrhea [] : Denies dysuria or hematuria [] Musculoskeletal: Denies back pain or joint pain [] Integument: Denies rash or skin lesions [] Neurologic: Denies headache, focal weakness or sensory changes [] Endocrine: Denies polyuria or polydipsia [] All other systems were reviewed and found to be within normal limits, except as documented in this note. Allergies Allergies Allergies Coded Allergies Type Severity Reaction Last Updated Verified aripiprazole Allergy Severe "ATTEMPTS SUICIDE" 02/24/14 Yes bee venom protein (honey bee) Allergy Severe Anaphylaxis 02/26/18 Yes cephalexin Allergy Severe Anaphylaxis 02/26/18 Yes coconut oil Allergy Severe swelling 02/24/14 Yes divalproex sodium Allergy Severe ATTEMPTS SUICIDE 02/24/14 Yes hydroxychloroquine Allergy Severe "asthma" 02/24/14 Yes venlafaxine Allergy Severe 02/26/18 Yes venom-wasp Allergy Severe Anaphylaxis 02/26/18 Yes Sulfa (Sulfonamide Antibiotics) Allergy Intermediate 03/05/18 Yes codeine Allergy Intermediate 02/04/18 Yes hydroxyzine Allergy Intermediate 04/21/14 Yes red dye Allergy Intermediate 04/21/14 Yes lactose Adverse Reaction Intermediate 03/05/18 Yes prazosin Adverse Reaction Intermediate 02/24/14 Yes Physical Exam Physical Exam Constitutional: Well developed, well nourished, no acute distress, non-toxic appearance. OBESE. HENT: Normocephalic, atraumatic, bilateral external ears normal. Eyes: PERRLA, EOMI, conjunctiva normal, no discharge. [] Neck: Normal range of motion, no tenderness, supple, no stridor. [] Cardiovascular:Heart rate regular rhythm, no murmur [] Lungs & Thorax: Bilateral breath sounds clear to auscultation [] Abdomen: Bowel sounds normal, soft, no tenderness. Skin: Warm, dry, no erythema, no rash. [] Back: No tenderness, no CVA tenderness. [] Extremities: No tenderness, no cyanosis, no clubbing, no edema. [] Neurologic: Alert and oriented X 3, normal motor function, normal sensory function, no focal deficits noted. [] Psychologic: Affect normal, judgement normal, mood normal. [] Current Patient Data Vital Signs Vital Signs Date Time Temp Pulse Resp B/P (MAP) Pulse Ox O2 Delivery O2 Flow Rate FiO2 01/26/19 13:54 97.5 54 19 139/73 (95) 99 Room Air 97.5 EKG EKG ekg was read by this physician at 1358, rate of 51 bpm, sinus rhythm, no stemi. [] Radiology/Procedures Radiology/Procedures [] Course & Med Decision Making Course & Med Decision Making Pertinent Labs and Imaging studies reviewed. (See chart for details) CHEST XRAY WAS DONE SHOWN NO ACUTE DISEASE, EKG WITH NO STEMI. .. Dragon Disclaimer Dragon Disclaimer This electronic medical record was generated, in whole or in part, using a voice recognition dictation system. Departure Departure Impression: Primary Impression: Chest pain Disposition: HOME, SELF-CARE Condition: STABLE Referrals: FLOR WHITLOCK MD (PCP) follow up with your doctor this week for reevaluation Patient Instructions: Chest Pain (Nonspecific) SUMA LEON DO Jan 26, 2019 14:10
--- NOTE | 2019-01-26 14:19 | RAD ---
PROCEDURE: CHEST AP ONLY CLINICAL INDICATION: CHEST PAIN COMPARISON: None FINDINGS: No pneumothorax identified. Cardiac and mediastinal contours unremarkable. No pulmonary consolidation or acute airspace disease. No acute osseous abnormalities identified. IMPRESSION: No pulmonary consolidation or acute airspace disease. Electronically signed by: Braeden Costello DO (01/26/2019 2:12 PM) [id number]
--- NOTE | 2019-01-26 15:04 | EKG ---
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
[2019-03-04] MEDS ORDERED: LORA-434 PO (22:34)
[2019-03-04] MEDS ORDERED: FURO-68 PO (22:34)
[2019-03-05] MEDS ORDERED: POTA10TA12 PO (12:17)
[2019-03-05] MEDS ORDERED: NAPR-514 PO (12:32)
[2019-03-06] MEDS ORDERED: AMLO10TA8 PO (10:01)
[2019-03-06] MEDS ORDERED: DICY10CA3 PO (10:01)
[2019-03-06] MEDS ORDERED: OXYC1TAB15 PO (10:01)
[2019-03-06] MEDS ORDERED: ACET250T2 PO (10:01)
== END 2019-01-26 14:20 | disposition home or self-care (01) ==
LOC: ER 13:45
DX: R07.89 Other chest pain (principal); J45.909 Unspecified asthma, uncomplicated; E11.9 Type 2 diabetes mellitus without complications; G43.909 Migraine, unspecified, not intractable, without status migrainosus; I10 Essential (primary) hypertension; Z88.1 Allergy status to other antibiotic agents; Z88.2 Allergy status to sulfonamides; Z88.5 Allergy status to narcotic agent; Z91.041 Radiographic dye allergy status; Z91.011 Allergy to milk products; Z91.030 Bee allergy status; Z91.018 Allergy to other foods
CPT/HCPCS: 71045; 93005; 99283

== ENCOUNTER 2019-02-13 08:40 | Emergency (ER) | payer OTHER ==
[~2019-02-13] VITALS: Ht 165.1 cm; Wt 135.2 kg
--- NOTE | 2019-02-13 09:26 | PHYS DOC ---
Past Medical History Past Medical History: Anxiety, Asthma, Diabetes-Type II, Fibromyalgia, Hypertension, Migraines, Seizure, Other Additional Past Medical Histor: ADD, BPD, INTERSTITIAL CYSTITIS Past Surgical History: Hysterectomy, Tonsillectomy, Other Additional Past Surgical Histo: wisdom teeth, cryo, heart cath- negative,exp lap, uterine lap Alcohol Use: Occasionally Drug Use: None Adult General Chief Complaint Chief Complaint: HEADACHE HPI HPI 33-year-old female presenting the emergency department today with a headache that she describes as similar to previous headaches. She has a history of migraines and follows with Dr. hirsch her neurologist. She's had multiple head CTs which is been unremarkable. On an MRI they saw a lesion for [facility] evaluated her and do not believe this to be anything that needs intervention. Dr. funes was waiting for clearance from them before doing a lumbar puncture. Intracranial idiopathic hypertension is in the differential at this point however the patient was referred to ophthalmology recently whom did not notice any papilledema on examination. The patient has not had any visual disturbances. ROS: She denies slurred speech chest pain shortness of breath vision changes numbness weakness or tingling. All other review of systems is negative unless otherwise noted in history of present illness. ED course: 33-year-old obese female presenting with a headache. On examination the patient has a normal neurologic exam. Limited funduscopy shows no signs of papilledema. Vision is intact. We will give IV fluids along with Benadryl and Reglan and Decadron. No need for repeat head CT based on patient's symptoms. It is possible the patient has a pathologic intracranial hypertension which the patient is currently pursuing diagnostic and therapeutic lumbar puncture. I offered to attempt one here in the emergency department. The patient is obese and thus would make the procedure difficult. I am concerned however about the mass in her brain however small, lumbar puncture at this point seems somewhat relatively contraindicated without further clarification of clearance from neurosurgery. Patient understands this and does not want to proceed with lumbar puncture given the risks.09:25AM on reexamination the patient is feeling much better.The patient has been examined and was not found to have an emergency medical condition. The patient was then discharged home in stable condition to follow up with their primary care physician and neurologist over the next 2-3 days. They were to return if their symptoms worsened, vision changes or if they were concerned for any reason. They were also instructed to return to the emergency department if they were unable to get the recommended and appropriate follow-up. [id number] discharge instructions and return precautions were given. Patient's questions were answered to their satisfaction. Patient is comfortable with plan. Review of Systems Review of Systems SEE ABOVE. Current Medications Current Medications Current Medications Medications (Trade) Dose Ordered Sig/Ric Start Time Stop Time Status Last Admin Dose Admin Dexamethasone Sodium Phosphate (Decadron) 10 mg 1X ONCE 02/13/19 09:30 02/13/19 09:31 DC 02/13/19 09:30 10 MG Diphenhydramine HCl (Benadryl) 25 mg 1X ONCE 02/13/19 09:30 02/13/19 09:31 DC 02/13/19 09:30 25 MG Metoclopramide HCl (Reglan) 10 mg 1X ONCE 02/13/19 09:30 02/13/19 09:31 DC 02/13/19 09:30 10 MG Sodium Chloride 1,000 ml @ 1,000 mls/hr 1X ONCE 02/13/19 09:30 02/13/19 10:29 DC 02/13/19 09:30 1,000 MLS/HR Allergies Allergies Allergies Coded Allergies Type Severity Reaction Last Updated Verified aripiprazole Allergy Severe "ATTEMPTS SUICIDE" 02/24/14 Yes bee venom protein (honey bee) Allergy Severe Anaphylaxis 02/26/18 Yes cephalexin Allergy Severe Anaphylaxis 02/26/18 Yes coconut oil Allergy Severe swelling 02/24/14 Yes divalproex sodium Allergy Severe ATTEMPTS SUICIDE 02/24/14 Yes hydroxychloroquine Allergy Severe "asthma" 02/24/14 Yes venlafaxine Allergy Severe 02/26/18 Yes venom-wasp Allergy Severe Anaphylaxis 02/26/18 Yes Sulfa (Sulfonamide Antibiotics) Allergy Intermediate 03/05/18 Yes codeine Allergy Intermediate 02/04/18 Yes hydroxyzine Allergy Intermediate 04/21/14 Yes red dye Allergy Intermediate 04/21/14 Yes lactose Adverse Reaction Intermediate 03/05/18 Yes prazosin Adverse Reaction Intermediate 02/24/14 Yes Physical Exam Physical Exam SEE ABOVE Constitutional: Well developed, well nourished, no acute distress, non-toxic appearance. HENT: Normocephalic, atraumatic, bilateral external ears normal, oropharynx moist, no oral exudates, nose normal. Eyes: PERRLA, EOMI, conjunctiva normal, no discharge. No obvious papilledema on funduscopy bilaterally without dilation. Neck: Normal range of motion, no tenderness, supple, no stridor. [] Cardiovascular:Heart rate regular rhythm, no murmur [] Lungs & Thorax: Bilateral breath sounds clear to auscultation Abdomen: Bowel sounds normal, soft, no tenderness, no masses, no pulsatile masses. [] Skin: Warm, dry, no erythema, no rash. Back: No tenderness, no CVA tenderness. [] Extremities: No tenderness, no cyanosis, no clubbing, ROM intact, no edema. [] Neurologic: Mental status: Awake oriented and alert x3 Cranial nerves: Extraocular movements intact, eyebrows marc bilaterally, smile symmetric, uvula elevation nl, shoulder shrug intact bilaterally, tongue protrusion normal DTRs: 2+ Sensation: equal and normal in all extremities Strength: 5/5 in upper and lower extremities bilaterally Psychologic: Affect normal, judgement normal, mood normal. [] Current Patient Data Vital Signs Vital Signs Date Time Temp Pulse Resp B/P (MAP) Pulse Ox O2 Delivery O2 Flow Rate FiO2 02/13/19 09:51 97.6 60 16 128/60 (82) 99 Room Air 97.6 EKG EKG [] Radiology/Procedures Radiology/Procedures [] Course & Med Decision Making Course & Med Decision Making Pertinent Labs and Imaging studies reviewed. (See chart for details) [] Dragon Disclaimer Dragon Disclaimer This electronic medical record was generated, in whole or in part, using a voice recognition dictation system. Departure Departure Impression: Primary Impression: Headache Disposition: 01 HOME, SELF-CARE Condition: STABLE Referrals: FLOR WHITLOCK MD (PCP) Patient Instructions: General Headache Without Cause Additional Instructions: Thank you for allowing us to participate in your care today. Return to the emergency department you have any new or worsening symptoms, or if you are concerned for any reason. Return to emergency department if you have any new or concerning symptoms including but not limited to fever, chills, nausea, vomiting, intractable pain, any new rashes, chest pain, shortness of air , uncontrolled bleeding, difficulty breathing, and/or vision loss. Follow up with your primary care physician within 1-2 days. Call your Primary Doctor tomorrow and inform them of your visit today. If you do not have a primary care provider we are happy to provide you with a list of our primary care providers contact information. This condition should be evaluated by your primary care physician and any recommended consulting services for continued management within 2 days after discharge. If at any time, you are having difficulty getting into your primary care doctor or a specialist, return to the emergency department. MIKE RIVERA MD Feb 13, 2019 09:26
[2019-02-13] MEDS ORDERED: METOCLOPRAMIDE 10 MG TABLET. PO ONE (09:30)
[2019-02-13] MEDS ORDERED: diphenhydrAMINE 50 MG/ML VIAL IVP ONE (09:30)
[2019-02-13] MEDS ORDERED: DEXAMETHASONE SOD PHOS 20 MG/5 ML VIAL. IV ONE (09:30)
[2019-02-13] MEDS ORDERED: IV NORMAL SALINE 1000ML BAG 1,000 ML IV ONE (09:30)
[2019-02-13 09:51] VITALS: BP 128/60
[2019-03-04] MEDS ORDERED: FURO-68 PO (22:34)
[2019-03-04] MEDS ORDERED: LORA-434 PO (22:34)
[2019-03-05] MEDS ORDERED: POTA10TA12 PO (12:17)
[2019-03-05] MEDS ORDERED: NAPR-514 PO (12:32)
[2019-03-06] MEDS ORDERED: AMLO10TA8 PO (10:01)
[2019-03-06] MEDS ORDERED: ACET250T2 PO (10:01)
[2019-03-06] MEDS ORDERED: DICY10CA3 PO (10:01)
[2019-03-06] MEDS ORDERED: OXYC1TAB15 PO (10:01)
== END 2019-02-13 10:46 | disposition home or self-care (01) ==
LOC: ER 08:40
DX: G43.909 Migraine, unspecified, not intractable, without status migrainosus (principal); J45.909 Unspecified asthma, uncomplicated; I10 Essential (primary) hypertension; E11.9 Type 2 diabetes mellitus without complications; F41.9 Anxiety disorder, unspecified; F98.8 Other specified behavioral and emotional disorders with onset usually occurring in childhood and adolescence; Z88.1 Allergy status to other antibiotic agents; Z88.2 Allergy status to sulfonamides; Z88.5 Allergy status to narcotic agent; Z91.011 Allergy to milk products; Z91.041 Radiographic dye allergy status; Z91.030 Bee allergy status; Z91.018 Allergy to other foods; Z88.8 Allergy status to other drugs, medicaments and biological substances
CPT/HCPCS: 96374; 96375; 99283; J1100; J1200; J7030; J8597

== ENCOUNTER 2019-02-18 18:47 | Emergency (ER) | payer OTHER ==
[~2019-02-18] VITALS: Ht 165.1 cm; Wt 135.2 kg
[2019-02-18] MEDS ORDERED: KETOROLAC 30 MG/ML VIAL. IV ONE (19:15)
[2019-02-18] MEDS ORDERED: IV NORMAL SALINE 1000ML BAG 1,000 ML IV ONE (19:15)
[2019-02-18] MEDS ORDERED: diphenhydrAMINE 50 MG/ML VIAL IVP ONE (19:15)
[2019-02-18] MEDS ORDERED: PROCHLORPERAZINE 10 MG/2 ML VIAL. IV ONE (19:15)
--- NOTE | 2019-02-18 19:23 | PHYS DOC ---
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 Patient states the patient states that she sees for her migraines and she is on preventatives. Patient states that when she does get a migraine she will take 6 ibuprofen, Benadryl, Ativan, Zofran, rub Icy Hot on her neck and forehead and jaw line but before that she'll try to take Maxalt. Patient states she did not take the regimen today. (POWER JUNIOR IMAGING TECHNOLOGIST) Review of Systems Review of Systems Constitutional: Denies fever or chills [] Eyes: Denies change in visual acuity, redness, or eye pain [] HENT: Denies nasal congestion or sore throat [] Respiratory: Denies cough or shortness of breath [] Cardiovascular: No additional information not addressed in HPI [] GI: Denies abdominal pain. + nausea, denies vomiting, bloody stools or diarrhea [] : Denies dysuria or hematuria [] Musculoskeletal: Denies back pain or joint pain [] Integument: Denies rash or skin lesions [] Neurologic: headache, denies focal weakness or sensory changes [] All other systems were reviewed and found to be within normal limits, except as documented in this note. (POWER JUNIOR APRN) Current Medications Current Medications Current Medications Medications (Trade) Dose Ordered Sig/Ric Start Time Stop Time Status Last Admin Dose Admin Diphenhydramine HCl (Benadryl) 25 mg 1X ONCE 02/18/19 19:15 02/18/19 19:21 DC 02/18/19 19:39 25 MG Fentanyl Citrate (Fentanyl 2ml Vial) 50 mcg 1X ONCE 02/18/19 21:15 02/18/19 21:16 DC 02/18/19 21:06 50 MCG Ketorolac Tromethamine (Toradol 30mg Vial) 30 mg 1X ONCE 02/18/19 19:15 02/18/19 19:20 DC 02/18/19 19:39 30 MG Prochlorperazine Edisylate (Compazine) 10 mg 1X ONCE 02/18/19 19:15 02/18/19 19:20 DC 02/18/19 19:38 10 MG Sodium Chloride 1,000 ml @ 1,000 mls/hr 1X ONCE 02/18/19 19:15 02/18/19 20:14 DC 02/18/19 19:38 1,000 MLS/HR (OUSMANE HOANG DO) Allergies Allergies Allergies Coded Allergies Type Severity Reaction Last Updated Verified aripiprazole Allergy Severe "ATTEMPTS SUICIDE" 02/24/14 Yes bee venom protein (honey bee) Allergy Severe Anaphylaxis 02/26/18 Yes cephalexin Allergy Severe Anaphylaxis 02/26/18 Yes coconut oil Allergy Severe swelling 02/24/14 Yes divalproex sodium Allergy Severe ATTEMPTS SUICIDE 02/24/14 Yes hydroxychloroquine Allergy Severe "asthma" 02/24/14 Yes venlafaxine Allergy Severe 02/26/18 Yes venom-wasp Allergy Severe Anaphylaxis 02/26/18 Yes Sulfa (Sulfonamide Antibiotics) Allergy Intermediate 03/05/18 Yes codeine Allergy Intermediate 02/04/18 Yes hydroxyzine Allergy Intermediate 04/21/14 Yes red dye Allergy Intermediate 04/21/14 Yes lactose Adverse Reaction Intermediate 03/05/18 Yes prazosin Adverse Reaction Intermediate 02/24/14 Yes (OUSMANE HOANG DO) Physical Exam Physical Exam Constitutional: Well developed, well nourished, no acute distress, non-toxic appearance. [] HENT: Normocephalic, atraumatic, bilateral external ears normal, oropharynx moist, no oral exudates, nose normal. Light sensitive[] Eyes: PERRLA, EOMI, conjunctiva normal, no discharge. [] Neck: Normal range of motion, no tenderness, supple, no stridor. [] Cardiovascular:Heart rate regular rhythm, no murmur [] Lungs & Thorax: Bilateral breath sounds clear to auscultation [] Abdomen: Bowel sounds normal, soft, no tenderness, no masses, no pulsatile masses. [] Skin: Warm, dry, no erythema, no rash. [] Back: No tenderness, no CVA tenderness. [] Extremities: No tenderness, no cyanosis, no clubbing, ROM intact, no edema. [] Neurologic: Alert and oriented X 3, normal motor function, normal sensory function, no focal deficits noted. [] Psychologic: Affect normal, judgement normal, mood normal. [] (POWER JUNIOR APRN) Current Patient Data Vital Signs Vital Signs Date Time Temp Pulse Resp B/P (MAP) Pulse Ox O2 Delivery O2 Flow Rate FiO2 02/18/19 21:06 16 97 Room Air 02/18/19 18:53 98.0 66 139/71 (93) 98.0 (OUSMANE HOANG DO) EKG EKG [] (POWER JUNIOR APRN) Radiology/Procedures Radiology/Procedures [] (POWER JUNIOR APRN) Course & Med Decision Making Course & Med Decision Making Patient is a 33 year old female who presents with history of migraines and states that she woke up at 1500 today and was having a migraine. Patient states the patient states that she sees for her migraines and she is on preventatives. Patient states that when she does get a migraine she will take 6 ibuprofen, Benadryl, Ativan, Zofran, rub Icy Hot on her neck and forehead and jaw line but before that she'll try to take Maxalt. Patient states she did not take the regimen today. Alert and oriented. Neurologically intact. PERRLA. Patient is ambulatory with a steady gait. Denies neck pain, vomiting, diarrhea, fever, abdominal pain, chest pain, shortness of air. Abdomen is soft and nontender. Lungs clear to auscultation all lobes. Speaks in a full clear sentences. Mucous membranes are moist. Skin is pink warm and dry. Vital signs are within normal limits. Patient received Benadryl, compazine, and toradol and states it did not help. Patient is given fentanyl. 2144: Patient states pain down to a 6/10 and is feeling better. Patient is discharged home and to call her doctor on Thursday. (POWER JUNIOR APRN) Dragon Disclaimer Dragon Disclaimer This electronic medical record was generated, in whole or in part, using a voice recognition dictation system. (POWER JUNIOR APRN) Departure Departure Impression: Primary Impression: Migraine headache Disposition: 01 HOME, SELF-CARE Condition: STABLE Referrals: FLOR WHITLOCK MD (PCP) Patient Instructions: Migraine Headache Additional Instructions: Follow up with primary care physician. Continue taking medication as prescribed. Attending Signature Attending Signature I have reviewed the PA/KEY ACCOUNT REPRESENTATIVE's note and plan of care. I was available for consultation as needed during the patient's visit in the emergency department. I agree with the clinical impression, plan, and disposition. (OUSMANE HOANG DO) Problem Qualifiers Primary Impression: Migraine headache Migraine type: unspecified Status migrainosus presence: without status migrainosus Intractability: not intractable Qualified Codes: G43.909 - Migraine, unspecified, not intractable, without status migrainosus POWER JUNIOR APRN Feb 18, 2019 19:23 OUSMANE HOANG DO Feb 19, 2019 02:37
[2019-02-18] MEDS ORDERED: fentaNYL PF VIAL 100 MCG/2 ML VIAL IV ONE (21:15)
[2019-02-18 21:55] VITALS: BP 106/67
[2019-03-04] MEDS ORDERED: LORA-434 PO (22:34)
[2019-03-04] MEDS ORDERED: FURO-68 PO (22:34)
[2019-03-05] MEDS ORDERED: POTA10TA12 PO (12:17)
[2019-03-05] MEDS ORDERED: NAPR-514 PO (12:32)
[2019-03-06] MEDS ORDERED: OXYC1TAB15 PO (10:01)
[2019-03-06] MEDS ORDERED: ACET250T2 PO (10:01)
[2019-03-06] MEDS ORDERED: AMLO10TA8 PO (10:01)
[2019-03-06] MEDS ORDERED: DICY10CA3 PO (10:01)
== END 2019-02-18 22:30 | disposition home or self-care (01) ==
LOC: ER 18:47
DX: G43.909 Migraine, unspecified, not intractable, without status migrainosus (principal); E11.9 Type 2 diabetes mellitus without complications; J45.909 Unspecified asthma, uncomplicated; I10 Essential (primary) hypertension; Z91.041 Radiographic dye allergy status; Z88.1 Allergy status to other antibiotic agents; Z88.5 Allergy status to narcotic agent; Z88.8 Allergy status to other drugs, medicaments and biological substances; Z91.030 Bee allergy status; Z91.011 Allergy to milk products
CPT/HCPCS: 96374; 96375; 99284; J0780; J1200; J1885; J3010; J7030

== ENCOUNTER → 2019-02-25 | Outpatient (CLI) | payer OTHER ==
[2019-02-18 21:55] VITALS: BP 106/67
[~2019-02-25] MED LIST changes: +ACET250T2 PO; +DICY10CA3 PO; +FURO-68 PO; +LORA-434 PO; +POTA10TA12 PO; +PRED20TA PO
[2019-02-25 14:22] LABS: BASO % 1 % (0-3); EOS # 0.1 x10^3/uL (0.0-0.7); EOS % 2 % (0-3); HEMATOCRIT 37.4 % (36.0-47.0); HEMOGLOBIN 12.6 g/dL (12.0-15.5); LYMPH # 1.6 x10^3/uL (1.0-4.8); LYMPH % 27 % (24-48); MEAN CORPUSCULAR HEMOGLOBIN 31 pg (25-35); MEAN CORPUSCULAR HGB CONC 34 g/dL (31-37); MEAN CORPUSCULAR VOLUME 91 fL (79-100); MONO # 0.4 x10^3/uL (0.0-1.1); MONO % 7 % (0-9); NEUT # 3.8 x10^3uL (1.8-7.7); NEUT % 63 % (31-73); PLATELET COUNT 229 x10^3/uL (140-400); RED CELL DISTRIBUTION WIDTH 13.3 % (11.5-14.5); WHITE BLOOD COUNT 6.1 x10^3/uL (4.0-11.0)
[2019-02-25 14:31] LABS: PROTHROMBIN TIME PATIENT 12.8 SEC (11.7-14.0)
== END | disposition home or self-care (01) ==
LOC: LAB 13:37
PROVIDERS: ATTEND Psychiatry & Neurology Neurology
DX: G93.2 Benign intracranial hypertension (principal)
CPT/HCPCS: 36415; 85025; 85610

== ENCOUNTER 2019-02-26 08:58 | Emergency (ER) | payer OTHER ==
[~2019-02-26] VITALS: Ht 165.1 cm; Wt 135.6 kg
[~2019-02-26 08:58] MED LIST changes: -ACET250T2 PO; -DICY10CA3 PO; -FURO-68 PO; -LORA-434 PO; -POTA10TA12 PO; -PRED20TA PO
--- NOTE | 2019-02-26 10:10 | PHYS DOC ---
Past Medical History Past Medical History: Anxiety, Asthma, Diabetes-Type II, Fibromyalgia, Hypertension, Migraines, Seizure, Other Additional Past Medical Histor: ADD, BPD Past Surgical History: Cholecystectomy, Hysterectomy, Tonsillectomy, Other Additional Past Surgical Histo: wisdom teeth, cryo, heart cath- negative,exp lap, uterine lap Additional Information: 2 cigarettes daily Alcohol Use: Occasionally Drug Use: None Adult General Chief Complaint Chief Complaint: HEADACHE HPI HPI Patient is a 33 year old female who presents with migraine/headache for the last four days. She reports an extensive history of migraine headaches dating back to 11 years old and that this migraine is similar to previous migraines. She reports the migraine begins on back of her left side of head, then migrates to behind L-eyeball before progressing to her whole head. She reports photosensitivity and aura. She reports that she was worked up by Dr. Logan with a CT/MRI and will be getting a lumbar puncture once scheduled. She reports that she took Maxalt this morning at 0500 which is having no effect. She reports that two previous migraines aborted with O2 and fentanyl, respectively and independently. Review of Systems Review of Systems Constitutional: Denies fever or chills [] Eyes: Denies change in visual acuity, redness, or eye pain [] HENT: Denies nasal congestion or sore throat [] Respiratory: Denies cough or shortness of breath [] Cardiovascular: No additional information not addressed in HPI [] GI: Denies abdominal pain, nausea, vomiting, bloody stools or diarrhea [] : Denies dysuria or hematuria [] Musculoskeletal: Denies back pain or joint pain [] Integument: Denies rash or skin lesions [] Neurologic: Reports chronic migraines with aura, photophopbia. Denies focal weakness or sensory changes [] Endocrine: Denies polyuria or polydipsia [] All other systems were reviewed and found to be within normal limits, except as documented in this note. Current Medications Current Medications Current Medications Medications (Trade) Dose Ordered Sig/Ric Start Time Stop Time Status Last Admin Dose Admin Acetaminophen/ Hydrocodone Bitart (Lortab 5/325) 2 tab 1X ONCE 02/26/19 11:30 02/26/19 11:31 DC 02/26/19 11:08 2 TAB Dexamethasone Sodium Phosphate (Decadron) 10 mg 1X ONCE 02/26/19 10:30 02/26/19 10:31 DC 02/26/19 10:54 10 MG Diphenhydramine HCl (Benadryl) 50 mg 1X ONCE 02/26/19 10:30 02/26/19 10:31 DC 02/26/19 10:47 50 MG Ketorolac Tromethamine (Toradol 15mg Vial) 15 mg 1X ONCE 02/26/19 10:30 02/26/19 10:31 DC Ketorolac Tromethamine (Toradol 30mg Vial) 30 mg 1X ONCE 02/26/19 10:30 02/26/19 10:31 DC Magnesium Sulfate/ Dextrose 100 ml @ 100 mls/hr 1X ONCE 02/26/19 10:30 02/26/19 10:30 DC Prochlorperazine Edisylate (Compazine) 10 mg 1X ONCE 02/26/19 10:30 02/26/19 10:31 DC Sodium Chloride 1,000 ml @ 1,000 mls/hr 1X ONCE 02/26/19 10:30 02/26/19 10:30 DC Allergies Allergies Allergies Coded Allergies Type Severity Reaction Last Updated Verified aripiprazole Allergy Severe "ATTEMPTS SUICIDE" 02/24/14 Yes bee venom protein (honey bee) Allergy Severe Anaphylaxis 02/26/18 Yes cephalexin Allergy Severe Anaphylaxis 02/26/18 Yes coconut oil Allergy Severe swelling 02/24/14 Yes divalproex sodium Allergy Severe ATTEMPTS SUICIDE 02/24/14 Yes hydroxychloroquine Allergy Severe "asthma" 02/24/14 Yes venlafaxine Allergy Severe 02/26/18 Yes venom-wasp Allergy Severe Anaphylaxis 02/26/18 Yes Sulfa (Sulfonamide Antibiotics) Allergy Intermediate 03/05/18 Yes codeine Allergy Intermediate 02/04/18 Yes hydroxyzine Allergy Intermediate 04/21/14 Yes red dye Allergy Intermediate 04/21/14 Yes lactose Adverse Reaction Intermediate 03/05/18 Yes prazosin Adverse Reaction Intermediate 02/24/14 Yes Physical Exam Physical Exam Constitutional: Well developed, well nourished, no acute distress, non-toxic appearance. [] HENT: Normocephalic, atraumatic, bilateral external ears normal, oropharynx moist, no oral exudates, nose normal. [] Eyes: PERRLA, EOMI, conjunctiva normal, no discharge. [] Neck: Normal range of motion, no tenderness, supple, no stridor. [] Cardiovascular:Heart rate regular rhythm, no murmur [] Lungs & Thorax: Bilateral breath sounds clear to auscultation [] Abdomen: Bowel sounds normal, soft, no tenderness, no masses, no pulsatile masses. [] Skin: Warm, dry, no erythema, no rash. [] Back: No tenderness, no CVA tenderness. [] Extremities: No tenderness, no cyanosis, no clubbing, ROM intact, no edema. [] Neurologic: Alert and oriented X 3, CN 2-11 intact, negative cerebellar signs, UE/LE str 5/5, normal motor function, normal sensory function, no focal deficits noted. [] Psychologic: Affect normal, judgement normal, mood normal. [] Current Patient Data Vital Signs Vital Signs Date Time Temp Pulse Resp B/P (MAP) Pulse Ox O2 Delivery O2 Flow Rate FiO2 02/26/19 11:30 67 100 02/26/19 11:08 16 Simple Mask 02/26/19 09:07 98.6 125/78 (94) 98.6 EKG EKG [] Radiology/Procedures Radiology/Procedures [] Course & Med Decision Making Course & Med Decision Making Pertinent Labs and Imaging studies reviewed. (See chart for details) Pt presents with migraine symptoms and history of chronic migraines. Negative neuro exam. Pt reports that O2 with mask successfully aborted a recent migraine. Will get IV access, administer compazine, benadryll and O2. PT ASKED FOR FENTANYL I TOLD HER PARENTERAL NARCOTICS NOT GOOD TX FOR H/A DUE TO RECURRENCE. GAVE NORCO SHE FELT BETTER NEURO ITNCT STEADY GAIT HR IN 60'S D/C STABLE CONDITION. GET LP WITH PRIMARY NEUROLOGIST SCHEDULED. PSEUDOTUMOR POSSIBLE BUT PT HAS BEEN WIATING FOR LP FOR SIX MONTHS I THINK IT CAN WAIT SHE HAS NO VISUAL SYMPTOMS [] Dragon Disclaimer Dragon Disclaimer This electronic medical record was generated, in whole or in part, using a voice recognition dictation system. Departure Departure Impression: Primary Impression: Migraine headache Disposition: 01 HOME, SELF-CARE Condition: STABLE Referrals: VELIA LO MD (PCP) CHAVO STOVER MD Feb 26, 2019 10:10
[2019-02-26] MEDS ORDERED: IV NORMAL SALINE 1000ML BAG 1,000 ML IV ONE (10:30)
[2019-02-26] MEDS ORDERED: DEXAMETHASONE SOD PHOS 20 MG/5 ML VIAL. IM ONE (10:30)
[2019-02-26] MEDS ORDERED: diphenhydrAMINE 50 MG/ML VIAL IM ONE (10:30)
[2019-02-26] MEDS ORDERED: PROCHLORPERAZINE 10 MG/2 ML VIAL. IV ONE (10:30)
[2019-02-26] MEDS ORDERED: KETOROLAC 30 MG/ML VIAL. IM ONE (10:30)
[2019-02-26] MEDS ORDERED: DEXAMETHASONE SOD PHOS 20 MG/5 ML VIAL. IV ONE (10:30)
[2019-02-26] MEDS ORDERED: KETOROLAC 15 MG/ML VIAL. IV ONE (10:30)
[2019-02-26] MEDS ORDERED: MAGNESIUM SULFATE 1GM 100 ML IV ONE (10:30)
[2019-02-26 11:30] VITALS: BP 133/67
[2019-02-26] MEDS ORDERED: HYDROcodone/APAP 5/325MG 1 TAB TABLET PO ONE (11:30)
[2019-03-04] MEDS ORDERED: LORA-434 PO (22:34)
[2019-03-04] MEDS ORDERED: FURO-68 PO (22:34)
[2019-03-05] MEDS ORDERED: POTA10TA12 PO (12:17)
[2019-03-05] MEDS ORDERED: NAPR-514 PO (12:32)
[2019-03-06] MEDS ORDERED: ACET250T2 PO (10:01)
[2019-03-06] MEDS ORDERED: DICY10CA3 PO (10:01)
[2019-03-06] MEDS ORDERED: OXYC1TAB15 PO (10:01)
[2019-03-06] MEDS ORDERED: AMLO10TA8 PO (10:01)
== END 2019-02-26 12:18 | disposition home or self-care (01) ==
LOC: ER 08:58
DX: G43.109 Migraine with aura, not intractable, without status migrainosus (principal); J45.909 Unspecified asthma, uncomplicated; E11.9 Type 2 diabetes mellitus without complications; I10 Essential (primary) hypertension; F41.9 Anxiety disorder, unspecified; F17.210 Nicotine dependence, cigarettes, uncomplicated
CPT/HCPCS: 96372; 99285; J1100; J1200

== ENCOUNTER 2019-03-03 07:34 | Outpatient (CLI) | payer OTHER ==
[2019-03-03 08:21] LABS: BASO % 1 % (0-3); EOS # 0.1 x10^3/uL (0.0-0.7); EOS % 3 % (0-3); HEMATOCRIT 36.5 % (36.0-47.0); HEMOGLOBIN 12.1 g/dL (12.0-15.5); LYMPH # 1.4 x10^3/uL (1.0-4.8); LYMPH % 24 % (24-48); MEAN CORPUSCULAR HEMOGLOBIN 30 pg (25-35); MEAN CORPUSCULAR HGB CONC 33 g/dL (31-37); MEAN CORPUSCULAR VOLUME 91 fL (79-100); MONO # 0.4 x10^3/uL (0.0-1.1); MONO % 7 % (0-9); NEUT # 3.7 x10^3uL (1.8-7.7); NEUT % 65 % (31-73); PLATELET COUNT 231 x10^3/uL (140-400); RED BLOOD COUNT 4.01 x10^6/uL (3.50-5.40); RED CELL DISTRIBUTION WIDTH 13.6 % (11.5-14.5); WHITE BLOOD COUNT 5.7 x10^3/uL (4.0-11.0)
[2019-03-03 08:31] LABS: POTASSIUM 3.4 mmol/L (3.5-5.1)
[2019-03-03] MEDS ORDERED: LIDOCAINE WITH 8.4% SOD BICARB 3 ML DISP.SYRIN. INJ ONE (09:15)
[2019-03-03 10:00] VITALS: BP 105/72
--- NOTE | 2019-03-03 10:18 | RAD ---
Examination: LUMBAR PUNCTURE History: PSEUDOTUMOR CEREBRI, MIGRAINES
0.7 MIN FLUORO TIME
8ML LIDOCAINE 1% USED
OPENING PRESSURE - 21
CLOSING PRESSURE - 19
10ML CSF REMOVED TECHNIQUE: The risks of the procedure were discussed with the patient and written and verbal consent was obtained. The patient was placed in a prone position on the fluoroscopic table and a suitable entry site into the central canal through the L4-5 interlaminar space was identified with fluoroscopic guidance. This site was prepped and draped in sterile fashion. A total of 8 cc 1% lidocaine solution without epinephrine was infiltrated into the skin and deep soft tissues along the expected needle track. A 6 inch 20-gauge spinal needle was advanced into the thecal sac with intermittent fluoroscopic guidance. Fluoroscopy was utilized for 0.7 minutes. Opening CSF pressure was obtained with the patient in the PUERTO RICAN position and was 21 mmHg. Closing pressure of 19 mmHg noted. A total of 10 mL clear CSF was collected and sent to the laboratory for requested analysis. The needle was removed and a sterile bandage was placed. The patient tolerated the procedure without complication. Postprocedure instructions were provided to the patient. IMPRESSION: Successful fluoroscopically guided lumbar puncture. Specimens sent to lab. Opening and closing pressures obtained. Electronically signed by: El Ayala MD (03/03/2019 10:15 AM) [facility]
[2019-03-03 10:37] LABS: CSF PROTEIN 51.3 mg/dL (15.0-45.0)
[2019-03-03 10:51] LABS: CSF CLARITY CLEAR; CSF COLOR COLORLESS; CSF WBC COUNT 0 /cmm (Not Established)
[2019-03-03 10:52] LABS: CSF RBC COUNT 3 /cmm (Not Established)
[2019-03-03 11:00] VITALS: BP 106/79
[2019-03-03 12:00] VITALS: BP 97/61
[2019-03-03 12:30] VITALS: BP 103/63
--- NOTE | 2019-03-03 12:45 | NUR ---
pt A&O x3. states she still has a h/a scale 6/10. she had the beginning of the h/a even before LP done. she took her home pain med, anxiety and muscle relaxer earlier before her procedure. tolerating po well. ambulated to BR w/o problem. dressing on rt inner buttock dry and intact- no drainage. d/c instructions reviewed. pt ambulated out to vehicle with her .
[2019-03-04] MEDS ORDERED: LORA-434 PO (22:34)
[2019-03-04] MEDS ORDERED: FURO-68 PO (22:34)
[2019-03-05 07:28] LABS: HERPES SIMPLEX TYPE 1 Negative (Negative); HERPES SIMPLEX TYPE 2 Negative (Negative)
[2019-03-05] MEDS ORDERED: POTA10TA12 PO (12:17)
[2019-03-05] MEDS ORDERED: NAPR-514 PO (12:32)
[2019-03-06] MEDS ORDERED: OXYC1TAB15 PO (10:01)
[2019-03-06] MEDS ORDERED: DICY10CA3 PO (10:01)
[2019-03-06] MEDS ORDERED: ACET250T2 PO (10:01)
[2019-03-06] MEDS ORDERED: AMLO10TA8 PO (10:01)
[2019-03-08 16:10] LABS: ALBUMIN,CSF 28 mg/dL (11-48); ALBUMIN,SERUM 3.9 g/dL (3.5-5.5); CSF IGG INDEX 0.5 (0.0-0.7); IGG,SERUM 820 mg/dL (700-1600)
[2019-03-14 17:09] LABS: VIRAL CULT FINAL No virus isolated. (.)
== END 2019-03-03 12:45 | disposition home or self-care (01) ==
LOC: RAD 07:34
PROVIDERS: ATTEND Psychiatry & Neurology Neurology
DX: G93.2 Benign intracranial hypertension (principal); G43.909 Migraine, unspecified, not intractable, without status migrainosus; I10 Essential (primary) hypertension; E11.9 Type 2 diabetes mellitus without complications; J44.9 Chronic obstructive pulmonary disease, unspecified; F17.210 Nicotine dependence, cigarettes, uncomplicated; Z90.710 Acquired absence of both cervix and uterus; Z88.2 Allergy status to sulfonamides; Z88.1 Allergy status to other antibiotic agents; Z88.5 Allergy status to narcotic agent; Z88.8 Allergy status to other drugs, medicaments and biological substances; Z91.030 Bee allergy status; Z91.041 Radiographic dye allergy status; Z91.018 Allergy to other foods; Z72.89 Other problems related to lifestyle; Z79.84 Long term (current) use of oral hypoglycemic drugs; Z79.899 Other long term (current) drug therapy; Z79.01 Long term (current) use of anticoagulants
CPT/HCPCS: 36415; 62270; 77003; 80051; 82787; 82945; 82947; 83873; 83916; 84157; 85025; 85610; 87071; 87075; 87102; 87252; 87529; 89051

== ENCOUNTER 2019-03-17 09:06 | Emergency (ER) | payer OTHER ==
[~2019-03-17] VITALS: Ht 165.1 cm; Wt 130.9 kg
[~2019-03-17 09:06] MED LIST changes: +ACET250T2 PO; +DICY10CA3 PO; +FURO-68 PO; +LORA-434 PO; +POTA10TA12 PO
[2019-03-17 09:18] VITALS: BP 131/79
[2019-03-17] MEDS ORDERED: KETOROLAC 60 MG/2 ML VIAL. IM ONE (09:45)
--- NOTE | 2019-03-17 09:45 | PHYS DOC ---
Past Medical History Past Medical History: Anxiety, Asthma, Diabetes-Type II, Fibromyalgia, Hy pertension, Migraines, Seizure, Other Additional Past Medical Histor: ADD, BPD Past Surgical History: Cholecystectomy, Hysterectomy, Tonsillectomy, Other Additional Past Surgical Histo: wisdom teeth, cryo, heart cath- negative,exp lap, uterine lap Smoking: Cigarettes Alcohol Use: Occasionally Drug Use: None Adult General Chief Complaint Chief Complaint: HEADACHE HPI HPI Patient is a 33 year old female with history of migraine headache and extensive psychiatric problem and frequent emergency room visits who presents with complaining of headache. Patient states she had 3 episodes of falls yesterday because of her balance and interpretation hit her head without loss of consciou sness. Patient complaining of global pressure headache since yesterday like her previous episodes of migraine headache and rated her pain 10 /10 without nausea, vomiting, fever and chills, neck pain, focal neuro deficit, photophobia and phonophobia and states she didn't take any pain medication at home because nothing working for her headache. Review of Systems Review of Systems Constitutional: Denies fever or chills [] Eyes: Denies change in visual acuity, redness, or eye pain [] HENT: Denies nasal congestion or sore throat [] Respiratory: Denies cough or shortness of breath [] Cardiovascular: No additional information not addressed in HPI [] GI: Denies abdominal pain, nausea, vomiting, bloody stools or diarrhea [] : Denies dysuria or hematuria [] Musculoskeletal: Denies back pain or joint pain [] Integument: Denies rash or skin lesions [] Neurologic: Reports headache, denies focal weakness or sensory changes [] Endocrine: Denies polyuria or polydipsia [] All other systems were reviewed and found to be within normal limits, except as documented in this note. Current Medications Current Medications Current Medications Medications (Trade) Dose Ordered Sig/Ric Start Time Stop Time Status Last Admin Dose Admin Ketorolac Tromethamine (Toradol Im) 60 mg 1X ONCE 03/17/19 09:45 03/17/19 09:46 DC 03/17/19 09:46 60 MG Allergies Allergies Allergies Coded Allergies Type Severity Reaction Last Updated Verified aripiprazole Allergy Severe "ATTEMPTS SUICIDE" 02/24/14 Yes bee venom protein (honey bee) Allergy Severe Anaphylaxis 02/26/18 Yes cephalexin Allergy Severe Anaphylaxis 02/26/18 Yes coconut oil Allergy Severe swelling 02/24/14 Yes divalproex sodium Allergy Severe ATTEMPTS SUICIDE 02/24/14 Yes hydroxychloroquine Allergy Severe "asthma" 02/24/14 Yes venlafaxine Allergy Severe 02/26/18 Yes venom-wasp Allergy Severe Anaphylaxis 02/26/18 Yes Sulfa (Sulfonamide Antibiotics) Allergy Intermediate 03/05/18 Yes codeine Allergy Intermediate 02/04/18 Yes hydroxyzine Allergy Intermediate 04/21/14 Yes red dye Allergy Intermediate 04/21/14 Yes lactose Adverse Reaction Intermediate 03/05/18 Yes prazosin Adverse Reaction Intermediate 02/24/14 Yes Physical Exam Physical Exam Constitutional: Well nourished, no acute distress, non-toxic appearance, morbidly obese. [] HENT: Normocephalic, atraumatic, oropharynx moist.[] Eyes: PERRLA, EOMI, conjunctiva normal, no discharge. [] Neck: Normal range of motion, no tenderness, supple, no stridor. [] Cardiovascular:Heart rate regular rhythm, no murmur [] Lungs & Thorax: Bilateral breath sounds clear to auscultation [] Skin: Warm, dry, no erythema, no rash. [] Back: No tenderness, no CVA tenderness. [] Extremities: No tenderness, no cyanosis, no clubbing, ROM intact, no edema. [] Neurologic: Alert and oriented X 3, normal motor function, normal sensory function, no focal deficits noted. [] Psychologic: Affect normal, judgement normal, mood normal. [] Current Patient Data Vital Signs Vital Signs Date Time Temp Pulse Resp B/P (MAP) Pulse Ox O2 Delivery O2 Flow Rate FiO2 03/17/19 09:18 98.3 52 18 131/79 (96) 100 Room Air 98.3 EKG EKG [] Radiology/Procedures Radiology/Procedures [facility] [address] [place], [place] [id number] IMAGING REPORT Signed PATIENT: SAUNDRA CAO ACCOUNT: [id number] : 1985 LOCATION: ER AGE: 33 SEX: F EXAM STATUS: REG ER ORD. PHYSICIAN: TYSON FRENCH MD REASON: fall PROCEDURE: CT HEAD WO CONTRAST PQRS Compliance Statement: One or more of the following individualized dose reduction techniques were utilized for this examination: 1. Automated exposure control 2. Adjustment of the mA and/or kV according to patient size 3. Use of iterative reconstruction technique CT HEAD WITHOUT CONTRAST History: VICENTE, FALLS Comparison: CT head without contrast, March 04, 2019. Procedure: Axial images are obtained of the head from the skull base through the vertex without IV contrast. Findings: The ventricles and sulci are normal for the patient's age. No mass-effect, midline shift, hemorrhage, extra-axial fluid collection, or obvious acute infarction is identified. Basilar cisterns are patent. Bone windows demonstrate no acute calvarial abnormality. The visualized paranasal sinuses are clear. Mastoid air cells are well aerated. IMPRESSION: No acute intracranial abnormality. Electronically signed by: Anibal Lopez MD (03/17/2019 10:01 AM) [id number] DICTATED and SIGNED BY: ANIBAL LOPEZ MD DATE: 03/17/19 1001 Course & Med Decision Making Course & Med Decision Making Pertinent Imaging studies reviewed. (See chart for details) Evaluation of patient in ER showed 33-year-old male patient with history of migraine headache and frequent emergency room visits complaining of a fall yesterday and migraine headache. Patient had unremarkable physical exam and CT head. Patient treated with oxygen and Toradol and felt better. Patient was advised to continue home medication and follow-up with her neurologist. Dragon Disclaimer Dragon Disclaimer This electronic medical record was generated, in whole or in part, using a voice recognition dictation system. Departure Departure Impression: Primary Impression: Migraine headache Additional Impressions: Fall at home Tobacco abuse Tobacco abuse counseling Morbid obesity with BMI of 45.0-49.9, adult Disposition: HOME, SELF-CARE (at 10:15) Condition: IMPROVED Referrals: VELIA LO MD (PCP) Patient Instructions: Fall Prevention and Home Safety, Migraine Headache, Smoking Cessation, Tips For Success Additional Instructions: Drink plenty of liquids Follow-up with your neurologist as needed Return to ER if not getting better Continue current home medication Problem Qualifiers Primary Impression: Migraine headache Migraine type: without aura Status migrainosus presence: without status migrainosus Intractability: not intractable Qualified Codes: G43.009 - Migraine without aura, not intractable, without status migrainosus Additional Impressions: Fall at home Encounter type: subsequent encounter Qualified Codes: W19.XXXD - Unspecified fall, subsequent encounter; Y92.009 - Unspecified place in unspecified non-institutional (private) residence as the place of occurrence of the external cause TYSON FRENCH MD Mar 17, 2019 09:45
--- NOTE | 2019-03-17 10:04 | RAD ---
PQRS Compliance Statement: One or more of the following individualized dose reduction techniques were utilized for this examination: 1. Automated exposure control 2. Adjustment of the mA and/or kV according to patient size 3. Use of iterative reconstruction technique CT HEAD WITHOUT CONTRAST History: VICENTE, FALLS Comparison: CT head without contrast, March 04, 2019. Procedure: Axial images are obtained of the head from the skull base through the vertex without IV contrast. Findings: The ventricles and sulci are normal for the patient's age. No mass-effect, midline shift, hemorrhage, extra-axial fluid collection, or obvious acute infarction is identified. Basilar cisterns are patent. Bone windows demonstrate no acute calvarial abnormality. The visualized paranasal sinuses are clear. Mastoid air cells are well aerated. IMPRESSION: No acute intracranial abnormality. Electronically signed by: Anibal Lopez MD (03/17/2019 10:01 AM) [id number]
== END 2019-03-17 10:34 | disposition home or self-care (01) ==
LOC: ER 09:06
DX: G43.909 Migraine, unspecified, not intractable, without status migrainosus (principal); R51 Headache; G89.11 Acute pain due to trauma; F17.210 Nicotine dependence, cigarettes, uncomplicated; Z71.6 Tobacco abuse counseling; I10 Essential (primary) hypertension; E11.9 Type 2 diabetes mellitus without complications; J45.909 Unspecified asthma, uncomplicated; F41.9 Anxiety disorder, unspecified; Z88.1 Allergy status to other antibiotic agents; Z88.2 Allergy status to sulfonamides; Z91.041 Radiographic dye allergy status; Z88.5 Allergy status to narcotic agent; Z88.8 Allergy status to other drugs, medicaments and biological substances; Z91.018 Allergy to other foods; Z91.030 Bee allergy status; Z91.038 Other insect allergy status; E66.01 Morbid (severe) obesity due to excess calories; Z68.42 Body mass index [BMI] 45.0-49.9, adult; W18.39XA Other fall on same level, initial encounter; Y93.89 Activity, other specified; Y92.098 Other place in other non-institutional residence as the place of occurrence of the external cause; Y99.8 Other external cause status
CPT/HCPCS: 70450; 96372; 99284; J1885

== ENCOUNTER 2019-03-21 22:04 | Emergency (ER) | payer OTHER ==
[~2019-03-21] VITALS: Ht 165.1 cm; Wt 130.6 kg
[~2019-03-21 22:04] MED LIST changes: -PRED20TA PO
--- NOTE | 2019-03-21 23:22 | PHYS DOC ---
Past Medical History Past Medical History: Anxiety, Asthma, Diabetes-Type II, Fibromyalgia, Hy pertension, Migraines, Seizure, Other Additional Past Medical Histor: ADD, BPD Past Surgical History: Cholecystectomy, Hysterectomy, Tonsillectomy, Other Additional Past Surgical Histo: wisdom teeth, cryo, heart cath- negative,exp lap, uterine lap Alcohol Use: Occasionally Drug Use: None Adult General Chief Complaint Chief Complaint: HEADACHE HPI HPI Patient is a 33 year old female who presents to the ER with chief complaint of headache. Patient states her headache started this morning when she was getting an MRI. She describes the pain as a crushing sensation located around her whole head. She denies any focal weakness, fever, or chills. She has attempted to take her Maxalt and Diamox with little relief. Patient reports that she was recently diagnosed with idiopathic intracranial hypertension, but has not has a migraine like this in over two years. Review of Systems Review of Systems Constitutional: Denies fever or chills Eyes: Denies blurry vision or eye pain HENT: Denies nasal congestion or sore throat [] Respiratory: Denies cough or shortness of breath [] Cardiovascular: Denies chest pain or palpitations GI: Denies abdominal pain, nausea, vomiting : Denies dysuria or hematuria [] Musculoskeletal: Denies back pain or joint pain [] Integument: Denies rash or skin lesions [] Neurologic: Reports headache. Denies focal weakness or sensory changes Complete systems were reviewed and found to be within normal limits, except as documented in this note. Current Medications Current Medications Current Medications Medications (Trade) Dose Ordered Sig/Ric Start Time Stop Time Status Last Admin Dose Admin Dexamethasone Sodium Phosphate (Decadron) 10 mg 1X ONCE 03/22/19 01:30 03/22/19 01:31 DC 03/22/19 01:42 10 MG Diphenhydramine HCl (Benadryl) 50 mg 1X ONCE 03/21/19 23:30 03/22/19 00:57 DC Fentanyl Citrate (Fentanyl 2ml Vial) 75 mcg 1X ONCE 03/22/19 01:30 03/22/19 01:31 DC 03/22/19 01:41 75 MCG Ketorolac Tromethamine (Toradol 15mg Vial) 15 mg 1X ONCE 03/21/19 23:30 03/22/19 00:57 DC Metoclopramide HCl (Reglan Vial) 10 mg 1X ONCE 03/21/19 23:30 03/22/19 00:57 DC Sodium Chloride 1,000 ml @ 1,000 mls/hr 1X ONCE 03/21/19 23:30 03/22/19 00:57 DC Allergies Allergies Allergies Coded Allergies Type Severity Reaction Last Updated Verified aripiprazole Allergy Severe "ATTEMPTS SUICIDE" 02/24/14 Yes bee venom protein (honey bee) Allergy Severe Anaphylaxis 02/26/18 Yes cephalexin Allergy Severe Anaphylaxis 02/26/18 Yes coconut oil Allergy Severe swelling 02/24/14 Yes divalproex sodium Allergy Severe ATTEMPTS SUICIDE 02/24/14 Yes hydroxychloroquine Allergy Severe "asthma" 02/24/14 Yes venlafaxine Allergy Severe 02/26/18 Yes venom-wasp Allergy Severe Anaphylaxis 02/26/18 Yes Sulfa (Sulfonamide Antibiotics) Allergy Intermediate 03/05/18 Yes codeine Allergy Intermediate 02/04/18 Yes hydroxyzine Allergy Intermediate 04/21/14 Yes red dye Allergy Intermediate 04/21/14 Yes lactose Adverse Reaction Intermediate 03/05/18 Yes prazosin Adverse Reaction Intermediate 02/24/14 Yes Physical Exam Physical Exam Constitutional: Well developed, well nourished HENT: Normocephalic, atraumatic, bilateral external ears normal, oropharynx moist, no oral exudates, nose normal. [] Eyes: EOMI, no discharge. [] Neck: Normal range of motion, supple Cardiovascular:Heart rate regular rhythm, no murmur [] Lungs & Thorax: Bilateral breath sounds clear to auscultation [] Abdomen: Bowel sounds normal, soft, n Skin: Warm, dry, Back: No tenderness, no CVA tenderness. [] Extremities: No cyanosis, no edema. [] Neurologic: Alert and oriented X 3, normal motor function, normal sensory function, no focal deficits noted, CN II through XII grossly intact bilaterally. [] Psychologic: Affect normal, mood normal. [] Current Patient Data Vital Signs Vital Signs Date Time Temp Pulse Resp B/P (MAP) Pulse Ox O2 Delivery O2 Flow Rate FiO2 03/22/19 01:41 20 03/22/19 01:30 90 99 03/21/19 22:20 98.4 116/85 (95) Room Air 98.4 EKG EKG [] Radiology/Procedures Radiology/Procedures [] Course & Med Decision Making Course & Med Decision Making 33-year-old female patient with a history of migraines and idiopathic intracranial hypertension presents to the emergency department due to headaches. States is like her typical migraines but has not had one this bad in over a few years. She attempted to take her migraine medication at home with little re lief. Neuro exam within normal limits. Symptomatic treatment provided with interval improvement. Patient stable for discharge with outpatient follow-up with PCP and neurologist. Discussed findings and plan with patient and family, who acknowledge understanding and agreement. Dragon Disclaimer Dragon Disclaimer This electronic medical record was generated, in whole or in part, using a voice recognition dictation system. Departure Departure Impression: Primary Impression: Migraine headache Disposition: HOME, SELF-CARE Condition: STABLE Referrals: VELIA LO MD (PCP) HARJINDER PRESSLEY MD Patient Instructions: Migraine Headache, [id number] Scripts Prednisone (PREDNISONE) 20 Mg Tablet 2 TAB PO DAILY, #8 TAB Start this prescription tomorrow 03/23/19 Prov: OUSMANE HOANG DO 03/22/19 Problem Qualifiers Primary Impression: Migraine headache Migraine type: unspecified Status migrainosus presence: with status migrainosus Intractability: intractable Qualified Codes: G43.911 - Migraine, unspecified, intractable, with status migrainosus OUSMANE HOANG DO Mar 21, 2019 23:22
[2019-03-21] MEDS ORDERED: DEXAMETHASONE SOD PHOS 4 MG/ML VIAL IV ONE (23:30)
[2019-03-21] MEDS ORDERED: diphenhydrAMINE 50 MG/ML VIAL IVP ONE (23:30)
[2019-03-21] MEDS ORDERED: KETOROLAC 15 MG/ML VIAL. IV ONE (23:30)
[2019-03-21] MEDS ORDERED: METOCLOPRAMIDE HCL 10 MG/2 ML VIAL. IV ONE (23:30)
[2019-03-21] MEDS ORDERED: IV NORMAL SALINE 1000ML BAG 1,000 ML IV ONE (23:30)
[2019-03-22] MEDS ORDERED: PRED20TA PO (01:04)
[2019-03-22 01:30] VITALS: BP 136/80
[2019-03-22] MEDS ORDERED: fentaNYL PF VIAL 100 MCG/2 ML VIAL IM ONE (01:30)
[2019-03-22] MEDS ORDERED: DEXAMETHASONE SOD PHOS 4 MG/ML VIAL IM ONE (01:30)
== END 2019-03-22 01:50 | disposition home or self-care (01) ==
LOC: ER 22:04
DX: G43.911 Migraine, unspecified, intractable, with status migrainosus (principal); F41.9 Anxiety disorder, unspecified; J45.909 Unspecified asthma, uncomplicated; I10 Essential (primary) hypertension; E11.9 Type 2 diabetes mellitus without complications; Z90.49 Acquired absence of other specified parts of digestive tract; Z90.710 Acquired absence of both cervix and uterus; Z90.89 Acquired absence of other organs; Z88.2 Allergy status to sulfonamides; Z88.5 Allergy status to narcotic agent; Z88.1 Allergy status to other antibiotic agents; Z88.8 Allergy status to other drugs, medicaments and biological substances; Z91.030 Bee allergy status; Z91.041 Radiographic dye allergy status; Z91.011 Allergy to milk products; Z91.018 Allergy to other foods
CPT/HCPCS: 96372; 99284; J1100; J3010

== ENCOUNTER → 2019-03-21 | Outpatient (CLI) | payer OTHER ==
[2019-03-17 09:18] VITALS: BP 131/79
[~2019-03-21] MED LIST changes: +PRED20TA PO
--- NOTE | 2019-03-21 12:12 | KCIC ---
MRI Cervical Spine Without Contrast History: Neck pain, headaches, torticollis Technique: Multiplanar, multi sequential noncontrast MR imaging was performed of the cervical spine. Comparison: None Findings: There is some motion degradation. Cervical vertebral body stature and AP alignment are maintained. Cervical cord caliber is within normal limits without focal signal abnormality. There is no significant marrow edema. Intervertebral disc spaces are mostly maintained, mild disc desiccation greatest C4-C5. C2-C3: Spinal canal and neural foramina are adequate. C3-C4: Neural foramina and spinal canal are adequate. C4-C5: Spinal canal and right neural foramen are adequate. There is likely mild left uncovertebral and facet degenerative change, likely minimal narrowing of the left neural foramen. C5-C6: Neural foramina and spinal canal are adequate. C6-C7: Neural foramina and spinal canal are adequate. C7-T1: Neural foramina and spinal canal are adequate. Impression: 1. There is no significant cervical spinal stenosis. There is minimal narrowing of the left C4-5 neural foramen due to facet and uncovertebral degenerative change. Electronically signed by: Jerry Coles MD (03/21/2019 12:09 PM) [id number]
== END | disposition home or self-care (01) ==
LOC: KCIC MRI 08:56
PROVIDERS: ATTEND Registered Nurse
DX: M47.812 Spondylosis without myelopathy or radiculopathy, cervical region (principal); M48.02 Spinal stenosis, cervical region
CPT/HCPCS: 72141

== ENCOUNTER 2019-03-30 08:49 | Emergency (ER) | payer OTHER ==
[~2019-03-30] VITALS: Ht 165.1 cm; Wt 133.0 kg
[~2019-03-30 08:49] MED LIST changes: +PRED20TA PO
[2019-03-30] MEDS ORDERED: PRED20TA PO (09:18)
--- NOTE | 2019-03-30 09:18 | PHYS DOC ---
Past Medical History Past Medical History: Anxiety, Asthma, Diabetes-Type II, Fibromyalgia, Hy pertension, Migraines, Seizure, Other Additional Past Medical Histor: ADD, BPD Past Surgical History: Cholecystectomy, Hysterectomy, Tonsillectomy, Other Additional Past Surgical Histo: wisdom teeth, cryo, heart cath- negative,exp lap, uterine lap Alcohol Use: Occasionally Drug Use: None Adult General Chief Complaint Chief Complaint: HEADACHE HPI HPI 33-year-old female presents with some upper respiratory type symptoms. She states her kids were sick last week. Now she has sore throat nasal congestion and dry cough. She says she lacks some energy. She's not had any fever chills or sweats. No nausea or vomiting. She does admit to having a bit of a headache.] Review of Systems Review of Systems Constitutional: Denies fever or chills [] Eyes: Denies change in visual acuity, redness, or eye pain [] HENT: Per history of present illness[] Respiratory: Reports dry cough[] Cardiovascular: No additional information not addressed in HPI [] GI: Denies abdominal pain, nausea, vomiting, bloody stools or diarrhea [] : Denies dysuria or hematuria [] Musculoskeletal: Denies back pain or joint pain [] Integument: Denies rash or skin lesions [] Neurologic: Denies headache, focal weakness or sensory changes [] Endocrine: Denies polyuria or polydipsia [] All other systems were reviewed and found to be within normal limits, except as documented in this note. Allergies Allergies Allergies Coded Allergies Type Severity Reaction Last Updated Verified aripiprazole Allergy Severe "ATTEMPTS SUICIDE" 02/24/14 Yes bee venom protein (honey bee) Allergy Severe Anaphylaxis 02/26/18 Yes cephalexin Allergy Severe Anaphylaxis 02/26/18 Yes coconut oil Allergy Severe swelling 02/24/14 Yes divalproex sodium Allergy Severe ATTEMPTS SUICIDE 02/24/14 Yes hydroxychloroquine Allergy Severe "asthma" 02/24/14 Yes venlafaxine Allergy Severe 02/26/18 Yes venom-wasp Allergy Severe Anaphylaxis 02/26/18 Yes Sulfa (Sulfonamide Antibiotics) Allergy Intermediate 03/05/18 Yes codeine Allergy Intermediate 02/04/18 Yes hydroxyzine Allergy Intermediate 04/21/14 Yes red dye Allergy Intermediate 04/21/14 Yes lactose Adverse Reaction Intermediate 4/13/18 Yes prazosin Adverse Reaction Intermediate 02/24/14 Yes Physical Exam Physical Exam Constitutional: Well developed, well nourished, no acute distress, non-toxic appearance. [] HENT: Normocephalic, atraumatic, bilateral external ears normal, oropharynx moist, no oral exudates, nose normal. [] Eyes: PERRLA, EOMI, conjunctiva normal, no discharge. [] Neck: Normal range of motion, no tenderness, supple, no stridor. [] Cardiovascular:Heart rate regular rhythm, no murmur [] Lungs & Thorax: Bilateral breath sounds clear to auscultation [] Abdomen: Bowel sounds normal, soft, no tenderness, no masses, no pulsatile masses. [] Skin: Warm, dry, no erythema, no rash. [] Back: No tenderness, no CVA tenderness. [] Extremities: No tenderness, no cyanosis, no clubbing, ROM intact, no edema. [] Neurologic: Alert and oriented X 3, normal motor function, normal sensory function, no focal deficits noted. [] Psychologic: Affect normal, judgement normal, mood normal. [] Current Patient Data Vital Signs Vital Signs Date Time Temp Pulse Resp B/P (MAP) Pulse Ox O2 Delivery O2 Flow Rate FiO2 03/30/19 09:00 98.0 61 20 124/67 (86) 97 Room Air 98.0 EKG EKG [] Radiology/Procedures Radiology/Procedures [] Course & Med Decision Making Course & Med Decision Making Pertinent Labs and Imaging studies reviewed. (See chart for details) [] Dragon Disclaimer Dragon Disclaimer This electronic medical record was generated, in whole or in part, using a voice recognition dictation system. Departure Departure Impression: Primary Impression: Viral URI Disposition: 01 HOME, SELF-CARE Condition: STABLE Referrals: VELIA LO MD (PCP) Patient Instructions: Viral Syndrome Additional Instructions: Return to the emergency department with any new or concerning symptoms Scripts Prednisone (PREDNISONE) 20 Mg Tablet 2 TAB PO DAILY PRN for COUGH, #14 TAB Prov: EMERSON ROMERO DO 03/30/19 EMERSON ROMERO DO March 30, 2019 09:18
[2019-03-30 09:35] VITALS: BP 115/66
== END 2019-03-30 09:37 | disposition home or self-care (01) ==
LOC: ER 08:49
DX: J06.9 Acute upper respiratory infection, unspecified (principal); B97.89 Other viral agents as the cause of diseases classified elsewhere; J45.909 Unspecified asthma, uncomplicated; E11.9 Type 2 diabetes mellitus without complications; I10 Essential (primary) hypertension; G43.909 Migraine, unspecified, not intractable, without status migrainosus; F41.9 Anxiety disorder, unspecified; Z88.1 Allergy status to other antibiotic agents; Z88.2 Allergy status to sulfonamides; Z88.5 Allergy status to narcotic agent; Z91.041 Radiographic dye allergy status; Z91.011 Allergy to milk products; Z91.030 Bee allergy status; Z91.038 Other insect allergy status; Z91.018 Allergy to other foods; Z88.8 Allergy status to other drugs, medicaments and biological substances
CPT/HCPCS: 99283

== ENCOUNTER → 2019-04-04 | Outpatient (CLI) | payer OTHER ==
[2019-03-30 09:35] VITALS: BP 115/66
--- NOTE | 2019-04-04 15:54 | RAD ---
CHEST PA LATERAL History: Shortness of air Comparison: January 26, 2019 Findings: 2 views of the chest are submitted. There is now mild bibasilar airspace opacity. No pleural fluid or pneumothorax. Heart size is stable. Impression: 1. There is now mild bibasilar airspace opacity which may be due to atelectasis/infiltrates. Electronically signed by: Jerry Coles MD (04/04/2019 3:52 PM) [id number]
== END | disposition home or self-care (01) ==
LOC: RAD 15:06
PROVIDERS: ATTEND Internal Medicine Pulmonary Disease
DX: R91.8 Other nonspecific abnormal finding of lung field (principal)
CPT/HCPCS: 71046

== ENCOUNTER 2019-11-24 14:33 | Emergency (ER) | payer MEDICAID, OTHER ==
[~2019-11-24] VITALS: Ht 167.6 cm; Wt 114.8 kg
[~2019-11-24 14:33] MED LIST changes: +INDO25CA21 PO; -INDO25CA5 PO; +MECL-75 PO; -MECL25TA3 PO; +OXYB5TAB10 PO; -OXYB5TAB7 PO
[2019-11-24 15:10] VITALS: BP 101/53
--- NOTE | 2019-11-24 15:16 | PHYS DOC ---
Past Medical History Past Medical History: Anxiety, Asthma, Diabetes-Type II, Fibromyalgia, Hy pertension, Migraines, Seizure, Other Additional Past Medical Histor: ADD, BPD Past Surgical History: Cholecystectomy, Hysterectomy, Tonsillectomy, Other Additional Past Surgical Histo: wisdom teeth, cryo, heart cath- negative,exp lap, uterine lap Alcohol Use: Occasionally Drug Use: None Adult General Chief Complaint Chief Complaint: EARACHE/EAR PAIN HPI HPI Patient is a 34 year old female who presents with right ear pain that has been ongoing for 13 days. She was placed on eardrops at that time. She went to her primary care doctor today after the ear pain is not improved. Her primary care doctor placed her on Augmentin. Patient states she heard a pop in her ear before arrival and she wanted it checked out. Review of Systems Review of Systems Constitutional: Denies fever or chills [] Eyes: Denies change in visual acuity, redness, or eye pain [] HENT: Reports R ear pain. Respiratory: Denies cough or shortness of breath [] Cardiovascular: No additional information not addressed in HPI [] GI: Denies abdominal pain, nausea, vomiting, bloody stools or diarrhea [] : Denies dysuria or hematuria [] Musculoskeletal: Denies back pain or joint pain [] Integument: Denies rash or skin lesions [] Neurologic: Denies headache, focal weakness or sensory changes [] Endocrine: Denies polyuria or polydipsia [] Complete systems were reviewed and found to be within normal limits, except as documented in this note. Allergies Allergies Allergies Coded Allergies Type Severity Reaction Last Updated Verified aripiprazole Allergy Severe "ATTEMPTS SUICIDE" 02/24/14 Yes bee venom protein (honey bee) Allergy Severe Anaphylaxis 02/26/18 Yes cephalexin Allergy Severe Anaphylaxis 02/26/18 Yes coconut oil Allergy Severe swelling 02/24/14 Yes divalproex sodium Allergy Severe ATTEMPTS SUICIDE 02/24/14 Yes hydroxychloroquine Allergy Severe "asthma" 02/24/14 Yes lithium Allergy Severe Unknown 11/24/19 Yes venlafaxine Allergy Severe 02/26/18 Yes venom-wasp Allergy Severe Anaphylaxis 02/26/18 Yes Sulfa (Sulfonamide Antibiotics) Allergy Intermediate 03/05/18 Yes codeine Allergy Intermediate 02/04/18 Yes hydroxyzine Allergy Intermediate 04/21/14 Yes red dye Allergy Intermediate 04/21/14 Yes lactose Adverse Reaction Intermediate 03/05/18 Yes prazosin Adverse Reaction Intermediate 02/24/14 Yes Physical Exam Physical Exam Constitutional: Well developed, well nourished, no acute distress, non-toxic appearance. [] HENT: Normocephalic, atraumatic, bilateral external ears normal, R erythema to tympanic membrane, oropharynx moist, no oral exudates, nose normal. [] Eyes: PERRLA, EOMI, conjunctiva normal, no discharge. [] ] Skin: Warm, dry, no erythema, no rash. [] Neurologic: Alert and oriented X 3, normal motor function, normal sensory function, no focal deficits noted. [] Psychologic: Affect normal, judgement normal, mood normal. [] Current Patient Data Vital Signs Vital Signs Date Time Temp Pulse Resp B/P (MAP) Pulse Ox O2 Delivery O2 Flow Rate FiO2 11/24/19 15:10 98.3 63 18 101/53 (69) 98 Room Air 98.3 EKG EKG [] Radiology/Procedures Radiology/Procedures [] Course & Med Decision Making Course & Med Decision Making Pertinent Labs and Imaging studies reviewed. (See chart for details) Patient has otitis media to the right ear. The patient was placed on Augmentin earlier today as she had treatment failure with eardrops. Discussed with patient how this is an appropriate intervention she's not need to have her antibiotic changed. Dragon Disclaimer Dragon Disclaimer This electronic medical record was generated, in whole or in part, using a voice recognition dictation system. Departure Departure Impression: Primary Impression: Otitis media Disposition: 01 HOME, SELF-CARE Condition: STABLE Referrals: VELIA LO MD (PCP) Patient Instructions: Otitis Media, Adult Additional Instructions: Thank you for visiting [facility]. We appreciate you trusting us with your care. If any additional problems come up don't hesitate to return to visit us. Please follow up with your primary care provider so they can plan additional care if needed and know about the problem that you had. If symptoms worsen come back to the Emergency Department. Any concerning symptoms that start such as chest pain, shortness of air, weakness or numbness on one side of the b efren, running high fevers or any other concerning symptoms return to the ER. Please take your antibiotics as originally prescribed. Problem Qualifiers Primary Impression: Otitis media Otitis media type: suppurative Chronicity: acute Laterality: right Re currence: not specified as recurrent Spontaneous tympanic membrane rupture: without spontaneous rupture Qualified Codes: H66.001 - Acute suppurative otitis media without spontaneous rupture of ear drum, right ear OUSMANE BALES APRN Nov 24, 2019 15:16
== END 2019-11-24 15:42 | disposition home or self-care (01) ==
LOC: ER 14:33
DX: H66.001 Acute suppurative otitis media without spontaneous rupture of ear drum, right ear (principal); E11.9 Type 2 diabetes mellitus without complications; J45.909 Unspecified asthma, uncomplicated; I10 Essential (primary) hypertension; Z88.2 Allergy status to sulfonamides; G43.909 Migraine, unspecified, not intractable, without status migrainosus; Z88.1 Allergy status to other antibiotic agents; Z88.5 Allergy status to narcotic agent; Z91.041 Radiographic dye allergy status; Z91.011 Allergy to milk products; Z91.038 Other insect allergy status; Z91.030 Bee allergy status; Z91.018 Allergy to other foods; Z88.8 Allergy status to other drugs, medicaments and biological substances
CPT/HCPCS: 99281

== ENCOUNTER → 2019-12-12 | Outpatient (CLI) | payer MEDICAID ==
[2019-11-24 15:10] VITALS: BP 101/53
--- NOTE | 2019-12-13 12:22 | SLEEP ---
DATE OF STUDY: 12/12/2019 SLEEP STUDY REPORT DATE OF STUDY: 12/12/2019 REFERRING PHYSICIAN: Yolanda Wiley MD Caroline is 34 years old who weighs 253 pounds with a BMI of 33. The patient's [place] score was 16. The patient underwent a sleep study performed at [facility]. Review of medications also include lamotrigine and mirtazapine and topiramate. During the night study, the patient spent 422 minutes in bed and slept for 381 minutes with a sleep efficiency of 90%. Sleep latency was 29 minutes with a REM latency of 356 minutes. Sleep architecture showed normal stage 1 sleep, increased stage 2 sleep, increased slow wave, and reduced REM sleep. During the night study, the patient had 37 hypopneas. No obstructive or central apneas and 2 mixed apneas. The patient's AHI was 6 per hour, supine AHI 7 per hour, and a REM AHI of 9 per hour. EKG monitoring revealed an average heart rate of 55 beats per minute. No sustained arrhythmias observed. PLMS were seen at index of 1 per hour and none caused EEG arousals. Nocturnal oximetry study revealed an average oxygen saturation of 98% with lowest of 86%. 14% of the time oxygen saturation remained between 80% and 89%. The quality of respiratory channels was marginal. Due to low AHI, the patient did not meet the split night criteria for CPAP initiation. IMPRESSION: 1. Mild sleep apnea-hypopnea syndrome at an AHI of 6 per hour. 2. Mild nocturnal hypoxia secondary to obstructive sleep apnea. 3. No clinically significant periodic limb movements. RECOMMENDATIONS: 1. The patient's sleep apnea is mild. The patient, however, does have [id number] subjective hypersomnia. It could be the effect of medications. However, since the patient is clinically symptomatic, I would recommend treating the patient's sleep apnea with either CPAP or oral appliance. 2. Once the patient is optimally treated, then follow up in 4-6 weeks to assess compliance with treatment and to document clinical improvement. 3. Avoid INTERIOR DESIGNER depressants. 4. Caution regarding driving until symptoms of sleep apnea resolved with the above recommendations. JOHNIE RUSH MD DR: VAISHNAVI/anitra JOB#: [id number] / [id number] YOLANDA Owen MD
== END | disposition home or self-care (01) ==
LOC: RT 18:32
PROVIDERS: ATTEND Internal Medicine Pulmonary Disease
DX: G47.33 Obstructive sleep apnea (adult) (pediatric) (principal); G47.34 Idiopathic sleep related nonobstructive alveolar hypoventilation
CPT/HCPCS: 95810

== ENCOUNTER 2019-12-13 05:54 | Emergency (ER) | payer MEDICAID ==
[~2019-12-13] VITALS: Ht 167.6 cm; Wt 115.0 kg
[2019-12-13 05:59] VITALS: BP 106/63
[2019-12-13] MEDS: ONDANSETRON ODT 4 MG TAB.RAPDIS. PO ONE (06:32)
[2019-12-13] MEDS: LIDOCAINE 1% Multi-Dose 20 ML VIAL. NAS ONE (06:36)
--- NOTE | 2019-12-13 06:48 | PHYS DOC ---
Past Medical History Past Medical History: Anxiety, Asthma, Diabetes-Type II, Fibromyalgia, Hy pertension, Migraines, Seizure, Other Additional Past Medical Histor: ADD, BPD Past Surgical History: Cholecystectomy, Hysterectomy, Tonsillectomy, Other Additional Past Surgical Histo: wisdom teeth, cryo, heart cath- negative,exp lap, uterine lap Alcohol Use: Rarely Drug Use: None Adult General Chief Complaint Chief Complaint: HEADACHE HPI HPI Patient is a 34 year old female with history of hypertension, anxiety and depression, asthma, migraine headache, fibromyalgia, frequent emergency room visits who presents with present of headache. Patient complaining of global hea dache as a throbbing pain for the last 2 or 3 days and rated his pain 10 over 10. Patient complaining of nausea without vomiting, fever and chills, focal neuro deficit, chest pain or shortness of breath. Patient states she had a sleep study in this hospital and came after She finished the test directly to ER. Review of Systems Review of Systems Constitutional: Denies fever or chills [] Eyes: Denies change in visual acuity, redness, or eye pain [] HENT: Denies nasal congestion or sore throat [] Respiratory: Denies cough or shortness of breath [] Cardiovascular: No additional information not addressed in HPI [] GI: Denies abdominal pain, vomiting, bloody stools or diarrhea and reports nausea and the patient had high[] : Denies dysuria or hematuria [] Musculoskeletal: Denies back pain or joint pain [] Integument: Denies rash or skin lesions [] Neurologic: Denies focal weakness or sensory changes, reports headache [] Endocrine: Denies polyuria or polydipsia [] All other systems were reviewed and found to be within normal limits, except as documented in this note. Current Medications Current Medications Current Medications Medications (Trade) Dose Ordered Sig/Ric Start Time Stop Time Status Last Admin Dose Admin Diphenhydramine HCl (Benadryl) 50 mg 1X ONCE 12/13/19 07:00 12/13/19 07:01 DC 12/13/19 06:51 50 MG Fentanyl Citrate (Fentanyl 2ml Vial) 50 mcg 1X ONCE 12/13/19 07:00 12/13/19 07:01 DC 12/13/19 06:51 50 MCG Lidocaine HCl (Lidocaine 1% 20ml Vial) 20 ml 1X ONCE 12/13/19 07:00 12/13/19 07:01 DC 12/13/19 06:36 20 ML Ondansetron HCl (Zofran Odt) 4 mg 1X ONCE 12/13/19 07:00 12/13/19 07:01 DC 12/13/19 06:32 4 MG Allergies Allergies Allergies Coded Allergies Type Severity Reaction Last Updated Verified aripiprazole Allergy Severe "ATTEMPTS SUICIDE" 02/24/14 Yes bee venom protein (honey bee) Allergy Severe Anaphylaxis 02/26/18 Yes cephalexin Allergy Severe Anaphylaxis 02/26/18 Yes coconut oil Allergy Severe swelling 02/24/14 Yes divalproex sodium Allergy Severe ATTEMPTS SUICIDE 02/24/14 Yes hydroxychloroquine Allergy Severe "asthma" 02/24/14 Yes lithium Allergy Severe Unknown 11/24/19 Yes venlafaxine Allergy Severe 02/26/18 Yes venom-wasp Allergy Severe Anaphylaxis 02/26/18 Yes Sulfa (Sulfonamide Antibiotics) Allergy Intermediate 03/05/18 Yes codeine Allergy Intermediate 02/04/18 Yes hydroxyzine Allergy Intermediate 04/21/14 Yes red dye Allergy Intermediate 04/21/14 Yes lactose Adverse Reaction Intermediate 03/05/18 Yes prazosin Adverse Reaction Intermediate 02/24/14 Yes Physical Exam Physical Exam Constitutional: Well nourished, mild distress, non-toxic appearance. [] HENT: Normocephalic, atraumatic. Eyes: PERRLA, EOMI, conjunctiva normal, no discharge. [] Neck: Normal range of motion, no tenderness, supple, no stridor. [] Cardiovascular:Heart rate regular rhythm, no murmur [] Lungs & Thorax: Bilateral breath sounds clear to auscultation [] Abdomen: Bowel sounds normal, soft, no tenderness, no masses, no pulsatile masses. [] Skin: Warm, dry, no erythema, no rash. [] Back: No tenderness, no CVA tenderness. [] Extremities: No tenderness, no cyanosis, no clubbing, ROM intact, no edema. [] Neurologic: Alert and oriented X 3, no focal deficits noted. [] Psychologic: Affect normal, judgement normal, mood normal. [] Current Patient Data Vital Signs Vital Signs Date Time Temp Pulse Resp B/P (MAP) Pulse Ox O2 Delivery O2 Flow Rate FiO2 12/13/19 06:51 20 Room Air 12/13/19 05:59 97.5 71 106/63 (12) 97 97.5 EKG EKG [] Radiology/Procedures Radiology/Procedures [] Course & Med Decision Making Course & Med Decision Making Evaluation of patient in ER showed 34-year-old female patient with history of migraine headache and frequent emergency room visits presented to ER with complaining of headache for 3 days. Patient had unremarkable physical exam. Blood pressure was normal and she is to this she seen 10 over 10 pain. Patient treated with intranasal lidocaine at associated pain did not change. Patient treated with Benadryl and fentanyl IM and stated that her pain improved. Patient was advised to continue home medication and follow up with her primary care physician. I've spoken with the patient and/or caregivers. I've explained the patient's condition, diagnosis and treatment plan based on information available to me at this time. I've answered the patient's and/or caregivers questions and addressed any concerns. The patient and/or caregivers have a good understanding the patient's diagnosis, condition and treatment plan as can be expected at this point. Vital signs have been stabilized. The patient's condition is stable for discharge from the emergency department. The patient will pursue further outpatient evaluation with her primary care provider or other designated consulting physician as outlined in the discharge instructions. Patient and/or caregivers are agreeable to this plan of care and follow-up instructions have been explained in detail. The patient and/or caregivers have received these instructions in written format and expressed understanding of these discharge instructions. The patient and her caregivers are aware that if any significant change in condition or worsening of symptoms should prompt him to immediately return to this of the closest emergency department. If an emergent department is not readily available I would encourage him to call 911. Keylaon Disclaimer Dragon Disclaimer This electronic medical record was generated, in whole or in part, using a voice recognition dictation system. Departure Departure Impression: Primary Impression: Migraine headache Additional Impression: Nausea Disposition: HOME, SELF-CARE (at 0717) Condition: IMPROVED Referrals: VELIA LO MD (PCP) Patient Instructions: Migraine Headache Additional Instructions: Drink plenty of liquids Follow-up with your primary care physician in 2-3 days Return to ER if not getting better Continue current medication Thank you for visiting [facility]. We appreciate you trusting us with your care. If any additional problems come up don't hesitate to return to visit us. Please follow up with your primary care provider so they can plan additional care if needed and know about the problem that you had. If symptoms worsen come back to the Emergency Department. Any concerning symptoms that start such as chest pain, shortness of air, weakness or numbness on one side of the body, running high fevers or any other concerning symptoms return to the ER. Problem Qualifiers Primary Impression: Migraine headache Migraine type: unspecified Status migrainosus presence: without status migrainosus Intractability: not intractable Qualified Codes: G43.909 - Migraine, unspecified, not intractable, without status migrainosus TYSON FRENCH MD Dec 13, 2019 06:48
[2019-12-13] MEDS: fentaNYL PF VIAL 100 MCG/2 ML VIAL IM ONE (06:51)
[2019-12-13] MEDS: diphenhydrAMINE 50 MG/ML VIAL IM ONE (06:51)
== END 2019-12-13 07:24 | disposition home or self-care (01) ==
LOC: ER 05:54
DX: G43.909 Migraine, unspecified, not intractable, without status migrainosus (principal); E11.9 Type 2 diabetes mellitus without complications; J45.909 Unspecified asthma, uncomplicated; I10 Essential (primary) hypertension; Z88.1 Allergy status to other antibiotic agents; Z88.2 Allergy status to sulfonamides; Z88.5 Allergy status to narcotic agent; Z91.041 Radiographic dye allergy status; Z91.011 Allergy to milk products; Z91.030 Bee allergy status; Z91.018 Allergy to other foods; Z91.038 Other insect allergy status; Z88.8 Allergy status to other drugs, medicaments and biological substances
CPT/HCPCS: 96372; 99284; J1200; J3010; Q0162

== ENCOUNTER 2020-01-29 15:37 | Emergency (ER) | payer MEDICAID ==
[~2020-01-29] VITALS: Ht 167.6 cm; Wt 114.8 kg
[2020-01-29 16:35] VITALS: BP 128/77
[2020-01-29] MEDS ORDERED: methylPREDNISolone SOD SUCC PF 125 MG/2 ML VIAL. IM ONE (16:45)
[2020-01-29] MEDS ORDERED: diphenhydrAMINE HCL 25 MG CAPSULE PO ONE (16:45)
[2020-01-29] MEDS ORDERED: KETOROLAC 60 MG/2 ML VIAL. IM ONE (16:45)
[2020-01-29] MEDS ORDERED: PROCHLORPERAZINE 10 MG/2 ML VIAL. IM ONE (16:45)
--- NOTE | 2020-01-29 16:54 | RAD ---
Exam performed: X-ray left ankle. HISTORY: Pain, status post fall. DATE OF SERVICE: 01/29/2020. COMPARISON: None available FINDINGS: AP, lateral and oblique views of the left ankle are obtained. Normal alignment of the ankle mortise is preserved. There is no acute fracture or dislocation. There is extensive soft tissue swelling around the ankle joint. No foreign body. IMPRESSION: Diffuse soft tissue swelling without underlying bony abnormality. Electronically signed by: Marlene Lerner MD (01/29/2020 4:51 PM) [id number]
--- NOTE | 2020-01-29 17:48 | PHYS DOC ---
Past Medical History Past Medical History: Anxiety, Asthma, Bipolar, Diabetes-Type II, Fibromyalgia, Hypertension, Migraines, Seizure, Other Additional Past Medical Histor: ADD, BPD, Neuropathy Past Surgical History: Cholecystectomy, Hysterectomy, Tonsillectomy, Other Additional Past Surgical Histo: wisdom teeth, cryo, heart cath- negative,exp lap, uterine lap Smoking Status: Current Every Day Smoker Alcohol Use: Rarely Drug Use: None Adult General Chief Complaint Chief Complaint: ANKLE PROBLEM HPI HPI Patient is a 34 year old female with multiple medical problems including hypertension, seizures, pseudo tumor cerebri, migraine headaches, fibromyalgia, among other illnesses who presents to the ED today reporting she fell down 3 weeks ago due to her usual seizures was seen by the PCP and was told she has a stress fracture on her left ankle. She reports today she was shopping at [employer] when she fell again due to a seizure. She states she does not know if she hit her head or not. Comes to the ED today complaining of migraine headache and requesting migraine medications. She states she took Imitrex with no relief. Rates her migraine headache is 9 out of 10 described as throbbing intermittent mostly on the back of her head. She is also complaining of left ankle pain worse on weightbearing rated at 8 out of 10. Describes the pain as sharp. Denies any relieving factors to her pain. Review of Systems Review of Systems Constitutional: Denies fever or chills [] Eyes: Denies change in visual acuity, redness, or eye pain [] HENT: Denies nasal congestion or sore throat [] Respiratory: Denies cough or shortness of breath [] Cardiovascular: No additional information not addressed in HPI [] GI: Denies abdominal pain, nausea, vomiting, bloody stools or diarrhea [] : Denies dysuria or hematuria [] Musculoskeletal: Reports left ankle pain. Denies back pain Integument: Denies rash or skin lesions [] Neurologic: Reports migraine headache and seizure, denies focal weakness or sensory changes [] All other systems were reviewed and found to be within normal limits, except as documented in this note. Current Medications Current Medications Current Medications Medications (Trade) Dose Ordered Sig/Ric Start Time Stop Time Status Last Admin Dose Admin Diphenhydramine HCl (Benadryl) 25 mg 1X ONCE 01/29/20 16:45 01/29/20 16:46 DC 01/29/20 17:17 25 MG Ketorolac Tromethamine (Toradol Im) 60 mg 1X ONCE 01/29/20 16:45 01/29/20 16:46 DC 01/29/20 17:17 60 MG Methylprednisolone Sodium Succinate (SOLU-Medrol 125MG VIAL) 125 mg 1X ONCE 01/29/20 16:45 01/29/20 16:46 DC 01/29/20 17:17 125 MG Prochlorperazine Edisylate (Compazine) 10 mg 1X ONCE 01/29/20 16:45 01/29/20 16:46 DC 01/29/20 17:17 10 MG Allergies Allergies Allergies Coded Allergies Type Severity Reaction Last Updated Verified aripiprazole Allergy Severe "ATTEMPTS SUICIDE" 02/24/14 Yes bee venom protein (honey bee) Allergy Severe Anaphylaxis 02/26/18 Yes cephalexin Allergy Severe Anaphylaxis 02/26/18 Yes coconut oil Allergy Severe swelling 02/24/14 Yes divalproex sodium Allergy Severe ATTEMPTS SUICIDE 02/24/14 Yes hydroxychloroquine Allergy Severe "asthma" 02/24/14 Yes lithium Allergy Severe Unknown 11/24/19 Yes venlafaxine Allergy Severe 02/26/18 Yes venom-wasp Allergy Severe Anaphylaxis 02/26/18 Yes Sulfa (Sulfonamide Antibiotics) Allergy Intermediate 03/05/18 Yes codeine Allergy Intermediate 02/04/18 Yes hydroxyzine Allergy Intermediate 04/21/14 Yes red dye Allergy Intermediate 04/21/14 Yes lactose Adverse Reaction Intermediate 03/05/18 Yes prazosin Adverse Reaction Intermediate 02/24/14 Yes Physical Exam Physical Exam Constitutional: Well developed, well nourished, no acute distress, non-toxic appearance. [] HENT: Normocephalic, atraumatic, bilateral external ears normal, oropharynx moist, no oral exudates, nose normal. [] Eyes: PERRLA, EOMI, conjunctiva normal, no discharge. [] Neck: Normal range of motion, no tenderness, supple, no stridor. [] Cardiovascular:Heart rate regular rhythm, no murmur [] Lungs & Thorax: Bilateral breath sounds clear to auscultation [] Abdomen: Bowel sounds normal, soft, no tenderness, no masses, no pulsatile masses. [] Skin: Warm, dry, no erythema, no rash. [] Back: No tenderness, no CVA tenderness. [] Extremities: Left ankle with no obvious deformity. Mild soft tissue swelling noted diffusely on the left ankle, tenderness diffusely on the lateral and medial aspect of the ankle. Full range of motion to the left ankle and foot. +2 left pedal pulse. Cap refill less than 2 seconds to left toes. Neurologic: Alert and oriented X 3, normal motor function, normal sensory function, no focal deficits noted. Cranial nerves II through XII intact Psychologic: Affect normal, judgement normal, mood normal. [] Current Patient Data Vital Signs Vital Signs Date Time Temp Pulse Resp B/P (MAP) Pulse Ox O2 Delivery O2 Flow Rate FiO2 01/29/20 16:35 97.9 76 15 128/77 (94) 98 Room Air 97.9 EKG EKG [] Radiology/Procedures Radiology/Procedures []PROCEDURE: ANKLE LEFT 3V Exam performed: X-ray left ankle. HISTORY: Pain, status post fall. DATE OF SERVICE: 01/29/2020. COMPARISON: None available FINDINGS: AP, lateral and oblique views of the left ankle are obtained. Normal alignment of the ankle mortise is preserved. There is no acute fracture or dislocation. There is extensive soft tissue swelling around the ankle joint. No foreign body. IMPRESSION: Diffuse soft tissue swelling without underlying bony abnormality. Electronically signed by: Marlene Lerner MD (01/29/2020 4:51 PM) [id number] DICTATED and SIGNED BY: MARLENE LERNER MD DATE: 01/29/20 165 Course & Med Decision Making Course & Med Decision Making Pertinent Labs and Imaging studies reviewed. (See chart for details) This is a 34-year-old female patient presenting to the ED today complaining of left ankle pain. See HPI. Patient reports the pain began 3 weeks ago after she had a seizure and fell, she also had a seizure today sustaining more pain on her left ankle. She is requesting migraine headache treatment as well. She is well-known to this ED. Left ankle x-rays interpreted by radiologist are negative for any acute findings. Offered a migraine cocktail with no narcotic. Discharge to home. Ice elevation encouraged. Follow-up with orthopedic doctor as well as her primary care doctor and neurologist. Dragon Disclaimer Dragon Disclaimer This electronic medical record was generated, in whole or in part, using a voice recognition dictation system. Departure Departure Impression: Primary Impression: Left ankle sprain Additional Impressions: Seizure Fall Migraine headache Disposition: 01 HOME, SELF-CARE Condition: STABLE Referrals: VELIA LO MD (PCP) follow up in 1-2 weeks FRANCISCA HARRISON II, MD follow up in 1-2 weeks Patient Instructions: Ankle Sprain, Seizure, Adult Additional Instructions: You were evaluated in the emergency room for left ankle sprain. Try to ice and elevate the extremity. Please continue following up with your own primary care doctor as well as neurologist. We also provided you an orthopedic doctor for follow up Problem Qualifiers Primary Impression: Left ankle sprain Encounter type: initial encounter Involved ligament of ankle: unspecified ligament Qualified Codes: S93.402A - Sprain of unspecified ligament of left ankle, initial encounter Additional Impressions: Fall Encounter type: initial encounter Qualified Codes: W19.XXXA - Unspecified fall, initial encounter Migraine headache Migraine type: unspecified Status migrainosus presence: without status migrainosus Intractability: not intractable Qualified Codes: G43.909 - Migraine, unspecified, not intractable, without status migrainosus YOUNG [employer] P[employer] 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
== END 2020-01-29 18:35 | disposition home or self-care (01) ==
LOC: ER 15:37
DX: S93.402A Sprain of unspecified ligament of left ankle, initial encounter (principal); G43.909 Migraine, unspecified, not intractable, without status migrainosus; R56.9 Unspecified convulsions; F31.9 Bipolar disorder, unspecified; J45.909 Unspecified asthma, uncomplicated; I10 Essential (primary) hypertension; F41.9 Anxiety disorder, unspecified; E11.40 Type 2 diabetes mellitus with diabetic neuropathy, unspecified; F17.200 Nicotine dependence, unspecified, uncomplicated; Z88.1 Allergy status to other antibiotic agents; Z88.2 Allergy status to sulfonamides; Z88.5 Allergy status to narcotic agent; Z91.041 Radiographic dye allergy status; Z91.011 Allergy to milk products; Z91.030 Bee allergy status; Z91.018 Allergy to other foods; Z88.8 Allergy status to other drugs, medicaments and biological substances; W18.39XA Other fall on same level, initial encounter; Y93.89 Activity, other specified; Y92.89 Other specified places as the place of occurrence of the external cause; Y99.8 Other external cause status
CPT/HCPCS: 73610; 96372; 99284; J0780; J1885; J2930; L4350; Q0163